=== PATIENT | male | born 1930 | race Caucasian/White ===

== ENCOUNTER 2018-03-28 11:40 | Day surgery (SDC) | payer OTHER ==
[2018-03-28] MEDS ORDERED: NS 0.9% VIAL 10 ML ONE (12:44)
[2018-03-28] MEDS ORDERED: NA CHLORIDE 0.9% 500 ML ONE (12:44)
[2018-03-28] MEDS ORDERED: MOXIFLOXACIN HCL 10 DROPS/ML **OR USE OPTH ONE (12:45)
[2018-03-28] MEDS ORDERED: EPINEPHRINE/PF 1 MG/ML AMP ONE (12:45)
[2018-03-28] MEDS ORDERED: BALANCED SALT IRRIG PLAIN 500 ML BTL IRR ONE (12:45)
[2018-03-28] MEDS ORDERED: LIDOCAINE 2% MPF 5 ML VIAL ONE (12:49)
[2018-03-28] MEDS ORDERED: BUPIVACAINE 0.5% PF 10 ML VIAL ONE (12:50)
[2018-03-28] MEDS: CYCLOPENTOLATE 1% OPTH 2 ML ONE ×3 (13:18→13:28)
[2018-03-28] MEDS: PHENYLEPHRINE 10% OPTH 5ML ONE ×3 (13:18→13:28)
[2018-03-28] MEDS ORDERED: BUPIVACAINE 0.25% PF 30 ML VIAL ONE (14:00)
[2018-03-28] MEDS ORDERED: PROPOFOL 200 MG/20 ML VIAL IV ONE (14:30)
[2018-03-28] MEDS ORDERED: LIDOCAINE 1% MPF 2 ML AMPULE ONE (14:30)
[2018-03-28] MEDS: TETRACAINE HCL 0.5% 2ML OPTH ONE ×2 (14:45→15:44)
[2018-03-28] MEDS ORDERED: DUOVISC 1 KIT OPTH ONE ×2 (15:14→15:30)
[2018-03-28] MEDS ORDERED: MIDAZOLAM HCL 2 MG/2 ML INJ ONE (15:45)
--- NOTE | 2018-03-28 16:07 | P.BOP ---
Preoperative diagnosis: Nuclear sclerotic cataract and miosis OS Postoperative diagnosis: Same Primary procedure: Phacoemulsification with IOL complex with the use of iris retractors OS Estimated blood loss: None Anesthesia: Local (Subtenon's infusion with anesthesia for cataract surgery) Complications: None Implants: SN60WF +20.0 Transferred to: Other (Day surgery) Condition: Good
[2018-03-28 16:19] VITALS: BP 141/54; TEMP 97.3; O2SAT 98
--- NOTE | 2018-03-29 01:40 | OP ---
Date of Procedure: 03/28/2018 Surgeon: Alia Norman MD Anesthesiologist: 1. Maryam Duran CRNA. 2. Zuhair Siu MD. Preoperative Diagnosis: Nuclear sclerotic cataract and miosis OD. Operation Performed: Phacoemulsification with intraocular lens implant right eye complex with the use of iris retractors. Anesthesia: Per cataract surgery. Complications: None. Description Of The Procedure: In day surgery, the patient was prepped with Betadine and draped. A lid speculum was placed in the OD. A conjunctival incision was made in the inferior nasal quadrant with Thierry scissors. A 1:1 mixture of 2% Xylocaine and 0.25% bupivacaine was placed around the globe. Approximately 5 mL were used. A Honan balloon was placed on the eye for approximately 5 minutes. The patient was brought into the operative room. The patient was prepped and draped in the usual sterile fashion for ophthalmic surgery. A lid speculum was placed in the eye. Paracentesis were made superiorly and inferiorly in the limbal cornea. Viscoat was placed in the anterior chamber. A crescent blade was used to create a tunnel incision in the temporal cornea and a keratome was used to enter the anterior chamber. The iris did not dilate adequately to create a 5 mm capsulotomy. Five additional paracentesis sites were created with one at the wound, one 180 degrees from the wound, and three in the superior and inferior quadrants; through these, 5 iris retractors were placed. Provisc was placed in the eye and 360 degree capsulotomy was performed. The lens was hydrodissected with balanced salt solution and moved freely. The lens was removed in a stop and chop fashion. A 40.91 CDE was required. Irrigation and aspiration was used to remove residual cortex. Provisc was placed in the eye. A SN60WF +20.0 diopter lens was placed in the capsular bag without complications. The iris retractors were removed. Irrigation and aspiration was used to remove residual viscoelastic. The paracentesis sites were hydrated with balanced salt solution and the wound and paracentesis sites were inspected and found to be watertight. Intracameral Vigamox 0.07 cc was injected at the end of the procedure. The eye was irrigated with balanced salt solution. The eye was patched with a soft cotton patch and Dumont metal shield. The patient was returned to day surgery in good condition. Comments: A scleral incision was created after making a conjunctival incision in the temporal conjunctiva. At the end of the procedure there was posterior pressure on the eye, and the iris incarceration in the inferior paracentesis. One 10-0 nylon suture was placed in the wound and one was placed in the inferior paracentesis. To relieve the pressure a 25-gauge needle was placed 3.5 mm posterior to the limbus and into the vitreous. Discharge Instructions: Mr. Sanchez is discharged to home in good condition. He is to follow up with Dr. Norman today and then in the morning. GABY/ANABELLA Voice ID: [id number] Report ID: [id number]
== END 2018-03-28 16:39 | disposition home or self-care (01) ==
LOC: OR 11:40
PROVIDERS: ATTEND Ophthalmology Retina Specialist
PROC: 08RJ3JZ Replacement of Right Lens with Synthetic Substitute, Percutaneous Approach (ICD-10-PCS; principal; 2018-03-28 12:15)
DX: H25.11 Age-related nuclear cataract, right eye (principal); H57.03 Miosis; H35.3130 Nonexudative age-related macular degeneration, bilateral, stage unspecified; H40.9 Unspecified glaucoma; H43.813 Vitreous degeneration, bilateral; E11.9 Type 2 diabetes mellitus without complications; I10 Essential (primary) hypertension; J44.9 Chronic obstructive pulmonary disease, unspecified; E78.00 Pure hypercholesterolemia, unspecified; F17.200 Nicotine dependence, unspecified, uncomplicated
CPT/HCPCS: 66982; 82962; J0171; J2001; J2250; V2630

== ENCOUNTER 2020-05-27 12:29 | Inpatient (IN) | payer OTHER ==
[2020-05-27 13:26] LABS: Absolute Lymphocytes (CBC) 0.8 K/uL (0.7-4.9); Basophils % 0.4 % (0-1.3); Hematocrit 32.2 % (39.6-49.0); MPV 9.8 fL (7.6-11.3); RBC Red Blood Cell Count 3.34 M/uL (4.33-5.43)
[2020-05-27] MEDS ORDERED: dexAMETHasone 4 MG/ML VIAL ONE (13:28)
[2020-05-27 13:43] LABS: Albumin 2.9 g/dL (3.4-5.0); Bilirubin Direct 0.1 mg/dL (0-0.2); Bilirubin Total 0.4 mg/dL (0.2-1.0); Potassium 5.3 mmol/L (3.5-5.1); Protein, Total 7.3 g/dL (6.4-8.2); Troponin (Emerg Dept Use Only) 0.17 ng/mL (0.0-0.045)
--- NOTE | 2020-05-27 13:45 | RAD REPORT ---
EXAM DESCRIPTION: Alistair Single View05/27/2020 1:27 pm CLINICAL HISTORY: Chest pain COMPARISON: May 2020 FINDINGS: Right basilar opacity. Small right pleural effusion. Left lung appears clear of acute infiltrate. Left basilar opacity could represents epicardial fat. The heart is borderline enlarged IMPRESSION: Small right pleural effusion with right basilar opacity likely pneumonia
--- NOTE | 2020-05-27 14:27 | ER ---
Nurse's Notes [facility] Name: Andrew Sanchez Age: 89 yrs Sex: Male : 1930 Arrival Date: 05/27/2020 Time: 12:33 Bed 2 Private MD: Diagnosis: Pneumonia, unspecified organism;Hypoxemia;Dyspnea, unspecified Presentation: 05/27 12:40 Onset of symptoms was April 2020. aa5 12:40 Coronavirus screen: chills, cough unrelated to allergies, fever, Client presents with aa5 at least one sign or symptom that may indicate coronavirus-19. Standard/surgical mask placed on the client. Provider contacted for isolation considerations. Ebola Screen: Patient negative for fever greater than or equal to 101.5 degrees Fahrenheit, and additional compatible Ebola Virus Disease symptoms. Initial Sepsis Screen: Does the patient meet any 2 criteria? RR > 20 per min. Temp <36.0*C (96.8*F)) or > 38.3*C (100.9*F). Yes Does the patient have a suspected source of infection? Yes: Productive cough/pneumonia. Risk Assessment: Do you want to hurt yourself or someone else? Patient reports no desire to harm self or others. 12:40 Acuity: JAMIE 2 aa5 12:40 Method Of Arrival: Wheelchair aa5 12:40 Chief complaint: Chief complaint: Pt's states "he's been having chills since this aa5 morning and he normally has a cough but over the last 2 days it's been getting worse". Pt is A\\T\\O x 3 in triage. Historical: - Allergies: 12:40 No Known Allergies; aa5 - PMHx: 12:40 Hypertension; Diabetes - IDDM; Emphysema; aa5 12:42 Arthritis; aa5 - Immunization history:: Adult Immunizations unknown. - Social history:: Smoking status: Patient reports the use of cigarette tobacco products, smokes one-half pack cigarettes per day. - Family history:: not pertinent. - Hospitalizations: : No recent hospitalization is reported. Screenin:06 Abuse screen: Denies threats or abuse. Denies injuries from another. Nutritional ca1 screening: No deficits noted. Tuberculosis screening: No symptoms or risk factors identified. Fall Risk IV access (20 points). Ambulatory Aid- Crutches/Cane/Walker (15 pts). Gait- Weak (10 pts.). Total Doss Fall Scale indicates High Risk Score (45 or more points). Fall prevention measures have been instituted. Side Rails Up X 2 Family Present and informed to notify staff if the need to leave the bedside As available patient and family educated on Fall Prevention Program and Strategies. Assessment: 13:06 General: Appears in no apparent distress. comfortable, Behavior is calm, cooperative, ca1 appropriate for age, drowsy, Reports fever for 0-12 hours. Pain: Denies pain. Neuro: Level of Consciousness is awake, obeys commands, Oriented to person, place, time, situation. Cardiovascular: Heart tones S1 S2 present Capillary refill < 3 seconds Patient's skin is warm and dry. Rhythm is sinus rhythm. Respiratory: Airway is patent Respiratory effort is even, unlabored, Respiratory pattern is regular, symmetrical, tachypnea Breath sounds are clear in right upper lobe, left upper lobe, right middle lobe, left posterior upper lobe, right posterior upper lobe, left posterior lower lobe and right posterior middle lobe Breath sounds are diminished in right posterior lower lobe Parent/caregiver reports the patient having cough that is more than usual. GI: Abdomen is round non-distended, Bowel sounds present X 4 quads. Abd is soft and non tender X 4 quads. : No signs and/or symptoms were reported regarding the genitourinary system. EENT: No signs and/or symptoms were reported regarding the EENT system. Derm: Skin is intact, is healthy with good turgor, Skin is normal. Musculoskeletal: Circulation, motion, and sensation intact. Capillary refill < 3 seconds. 14:00 Reassessment: Patient appears in no apparent distress at this time. Patient and/or ca1 family updated on plan of care and expected duration. Pain level reassessed. Patient is alert, oriented x 3, equal unlabored respirations, skin warm/dry/pink. 14:52 Reassessment: Patient appears in no apparent distress at this time. Patient and/or ca1 family updated on plan of care and expected duration. Pain level reassessed. Patient is alert, oriented x 3, equal unlabored respirations, skin warm/dry/pink. 15:42 Reassessment: Patient appears in no apparent distress at this time. Patient and/or ca1 family updated on plan of care and expected duration. Pain level reassessed. Patient is alert, oriented x 3, equal unlabored respirations, skin warm/dry/pink. 16:17 Reassessment: repeat lactate sent to lab, spoke with Denisa. em 16:40 Reassessment: Patient appears in no apparent distress at this time. Patient and/or ca1 family updated on plan of care and expected duration. Pain level reassessed. Patient is alert, oriented x 3, equal unlabored respirations, skin warm/dry/pink. 17:32 Reassessment: Patient appears in no apparent distress at this time. Patient and/or ca1 family updated on plan of care and expected duration. Pain level reassessed. Patient is alert, oriented x 3, equal unlabored respirations, skin warm/dry/pink. 18:08 Reassessment: Patient appears in no apparent distress at this time. Patient and/or ca1 family updated on plan of care and expected duration. Pain level reassessed. Patient is alert, oriented x 3, equal unlabored respirations, skin warm/dry/pink. 18:08 Reassessment: Called for report, nurse will call back. ca1 18:38 Reassessment: Patient appears in no apparent distress at this time. Patient and/or ca1 family updated on plan of care and expected duration. Pain level reassessed. Patient is alert, oriented x 3, equal unlabored respirations, skin warm/dry/pink. 19:11 Reassessment: Patient appears in no apparent distress at this time. Patient and/or ca1 family updated on plan of care and expected duration. Pain level reassessed. Patient is alert, oriented x 3, equal unlabored respirations, skin warm/dry/pink. 19:40 Reassessment: Patient appears in no apparent distress at this time. Patient and/or ca1 family updated on plan of care and expected duration. Pain level reassessed. Patient is alert, oriented x 3, equal unlabored respirations, skin warm/dry/pink. Vital Signs: 12:46 BP 109 / 42; Pulse 87; Resp 26 S; Temp 102.9(O); Pulse Ox 90% on R/A; aa5 14:00 BP 105 / 31; Pulse 75; Resp 26 S; Pulse Ox 90% on R/A; ca1 14:52 BP 107 / 47; Pulse 75; Resp 24 S; Temp 100.1(O); Pulse Ox 96% on R/A; ca1 15:42 BP 101 / 51; Pulse 72; Resp 23 S; Pulse Ox 99% on R/A; ca1 16:40 BP 90 / 60; Pulse 70; Resp 20 S; Temp 99.1(O); Pulse Ox 96% on R/A; ca1 17:32 BP 101 / 59; Pulse 69; Resp 24; Pulse Ox 96% on R/A; ca1 18:08 BP 106 / 62; Pulse 74; Resp 23 S; Pulse Ox 96% on R/A; ca1 19:00 BP 98 / 58; Pulse 74; Resp 24; Pulse Ox 94% on R/A; ca1 19:40 BP 95 / 59; Pulse 77; Resp 22; Temp 98.5; Pulse Ox 92% on R/A; ca1 19:42 Pulse Ox 99% ; ca1 19:42 hooked to oxygen at 2 liter via nasal cannula ca1 ED Course: 12:33 Patient arrived in ED. ag5 12:42 Arm band placed on. aa5 12:44 Triage completed. aa5 12:47 Kofi Cameron MD is Attending Physician. rn 13:00 No provider procedures requiring assistance completed. Inserted saline lock: 20 gauge ca1 in left forearm, using aseptic technique. Blood collected. 13:00 Initial lab(s) drawn, by me, sent to lab. First set of blood cultures drawn by me. ca1 13:04 Svetlana Edmondson, RN is Primary Nurse. ca1 13:05 Inserted saline lock: 20 gauge in right forearm, using aseptic technique. Blood ca1 collected. 13:05 Second set of blood cultures drawn. ca1 13:06 Patient has correct armband on for positive identification. Placed in gown. Bed in low ca1 position. Call light in reach. Side rails up X2. sanitation worker cleaning equipment on. Pulse ox on. NIBP on. 13:25 XRAY CXR (1 view) In Process Unspecified. EDMS 14:00 Flu and/or RSV swab sent to lab. COVID-19 swab sent to lab. jl7 14:25 Mainor Cameron MD is Hospitalizing Provider. rn 15:43 Patient admitted, IV remains in place. ca1 Administered Medications: 13:18 Drug: Decadron - Dexamethasone 10 mg Route: IVP; Site: left forearm; ll2 13:45 Follow up: Response: No adverse reaction jl7 14:30 Drug: Tylenol 1000 mg Route: PO; ca1 15:17 Follow up: Response: No adverse reaction; Temperature is decreased ca1 14:50 Drug: Rocephin 1 grams Route: IV; Rate: calculated rate; Site: right forearm; ca1 14:53 Follow up: Response: No adverse reaction; IV Status: Completed infusion jl7 15:17 Follow up: Response: No adverse reaction; IV Status: Completed infusion ca1 15:08 Drug: Zithromax 500 mg Route: IVPB; Infused Over: 1 hrs; Site: right forearm; jl7 16:22 Follow up: Response: No adverse reaction; IV Status: Completed infusion; IV Intake: em 250ml 16:54 Follow up: Response: No adverse reaction; IV Status: Completed infusion; IV Intake: ca1 250ml 15:17 Drug: NS 0.9% 500 ml Route: IV; Rate: bolus; Site: right wrist; ca1 16:22 Follow up: IV Status: Completed infusion; IV Intake: 500ml em 18:25 Drug: NS 0.9% 500 ml Route: IV; Rate: bolus; Site: right wrist; ca1 19:30 Follow up: Response: No adverse reaction; IV Status: Completed infusion; IV Intake: ca1 500ml Intake: 16:22 IV: 500ml; Total: 500ml. em 16:22 IV: 250ml; Total: 750ml. em 16:54 IV: 250ml; Total: 1000ml. ca1 19:30 IV: 500ml; Total: 1500ml. ca1 Outcome: 14:26 Decision to Hospitalize by Provider. rn 19:40 Admitted to Med/surg accompanied by nurse, via stretcher, room 207, with chart, Report ca1 called to STEPHY Garcia 19:40 Condition: stable ca1 19:40 Instructed on the need for admit. 19:49 Patient left the ED. mg2 Signatures: Dispatcher [employer] EDMS Neri Raphael RN RN em Kofi Cameron MD MD rn Calderon, Audri RN RN aa5 Grupo Coates RN RN jl7 Deven Montero RN RN mg2 Svetlana Edmondson RN RN ca1 Aurelio Arellano 5 Armida Singh RN RN ll2 Corrections: (The following items were deleted from the chart) 13:03 12:40 Chief complaint: aa5 aa5 13:05 12:40 Chief complaint: Pt's states "he's been having chills since this morning and aa5 he normally has a cough but over the last 2 days it's been getting worse". Chief complaint: Pt's states "he's been having chills since this morning and he normally has a cough but over the last 2 days it's been getting worse". aa5 14:52 13:06 Respiratory: Airway is patent Respiratory effort is even, unlabored, Respiratory ca1 pattern is regular, symmetrical, Parent/caregiver reports the patient having cough that is more than usual ca1
--- NOTE | 2020-05-27 14:27 | EDPHYS ---
Physician Documentation [facility] Name: Andrew Sanchez Age: 89 yrs Sex: Male : 1930 Arrival Date: 05/27/2020 Time: 12:33 Bed 2 Private MD: ED Physician Kofi Cameron HPI: 05/27 14:22 This 89 yrs old Male presents to ER via Wheelchair with complaints of Cough, rn Myrna. 14:22 The patient or guardian reports cough, difficulty breathing. Onset: The rn symptoms/episode began/occurred 2 day(s) ago. Severity of symptoms: At their worst the symptoms were moderate, in the emergency department the symptoms are unchanged. Modifying factors: The symptoms are alleviated by nothing, the symptoms are aggravated by nothing. It is unknown whether or not the patient has had similar symptoms in the past. states productive cough and dyspnea since yesterday, fever and chills today. + generalized weakness. . Historical: - Allergies: 12:40 No Known Allergies; aa5 - PMHx: 12:40 Hypertension; Diabetes - IDDM; Emphysema; aa5 12:42 Arthritis; aa5 - Immunization history:: Adult Immunizations unknown. - Social history:: Smoking status: Patient reports the use of cigarette tobacco products, smokes one-half pack cigarettes per day. - Family history:: not pertinent. - Hospitalizations: : No recent hospitalization is reported. ROS: 14:22 Constitutional: + fever and chills Eyes: Negative for injury, pain, redness, and rn hospice, Cardiovascular: Negative for chest pain, palpitations, and edema, Respiratory: + cough and sob Abdomen/GI: Negative for abdominal pain, nausea, vomiting, diarrhea, and constipation, MS/Extremity: Negative for injury and deformity, Skin: Negative for injury, rash, and discoloration, Neuro: Negative for headache, numbness, tingling, and seizure. Exam: 14:22 Constitutional: This is a well developed, well nourished patient who is awake, alert, rn + moderate tachypnea Head/Face: Normocephalic, atraumatic. ENT: dry MM, no stridor Cardiovascular: Regular rate and rhythm. No pulse deficits. Respiratory: + moderate tachypnea, diminished at bases, no retractions Abdomen/GI: soft, non-tender Skin: Warm, dry MS/ Extremity: Pulses equal, no cyanosis. Neuro: Awake and alert, GCS 15 Vital Signs: 12:46 BP 109 / 42; Pulse 87; Resp 26 S; Temp 102.9(O); Pulse Ox 90% on R/A; aa5 14:00 BP 105 / 31; Pulse 75; Resp 26 S; Pulse Ox 90% on R/A; ca1 14:52 BP 107 / 47; Pulse 75; Resp 24 S; Temp 100.1(O); Pulse Ox 96% on R/A; ca1 15:42 BP 101 / 51; Pulse 72; Resp 23 S; Pulse Ox 99% on R/A; ca1 16:40 BP 90 / 60; Pulse 70; Resp 20 S; Temp 99.1(O); Pulse Ox 96% on R/A; ca1 17:32 BP 101 / 59; Pulse 69; Resp 24; Pulse Ox 96% on R/A; ca1 18:08 BP 106 / 62; Pulse 74; Resp 23 S; Pulse Ox 96% on R/A; ca1 19:00 BP 98 / 58; Pulse 74; Resp 24; Pulse Ox 94% on R/A; ca1 19:40 BP 95 / 59; Pulse 77; Resp 22; Temp 98.5; Pulse Ox 92% on R/A; ca1 19:42 Pulse Ox 99% ; ca1 19:42 hooked to oxygen at 2 liter via nasal cannula ca1 MDM: 12:47 Patient medically screened. rn 14:24 Differential Diagnosis: Influenza Viral Syndrome Pneumonia Other COVID-19. Data rn reviewed: vital signs, nurses notes, lab test result(s), EKG, radiologic studies, plain films, and as a result, I will admit patient. Counseling: I had a detailed discussion with the patient and/or guardian regarding: the historical points, exam findings, and any diagnostic results supporting the discharge/admit diagnosis, lab results, radiology results, the need for further work-up and treatment in the hospital. Response to treatment: the patient's symptoms have mildly improved after treatment, and as a result, I will admit patient. Admission orders: after a detailed discussion of the patient's condition and case, the admit orders are written by me. 15:13 ED course: small fluid bolus 2/2 elevated BNP, and age, most likely some component of rn CHF.. 05/27 13:06 Order name: Blood Culture Adult (2) rn 05/27 13:06 Order name: BMP; Complete Time: 14:02 rn 05/27 13:06 Order name: CBC with Diff; Complete Time: 14:02 rn 05/27 13:06 Order name: Hepatic Function; Complete Time: 14:02 rn 05/27 13:06 Order name: Lipase; Complete Time: 14:02 rn 05/27 13:06 Order name: NT PRO-BNP; Complete Time: 14:02 rn 05/27 13:06 Order name: Troponin (emerg Dept Use Only); Complete Time: 14:02 rn 05/27 13:06 Order name: Flu; Complete Time: 18:18 rn 05/27 13:06 Order name: Procalcitonin; Complete Time: 14:02 rn 05/27 13:06 Order name: Lactate; Complete Time: 14:02 rn 05/27 13:06 Order name: Ferritin; Complete Time: 14:02 rn 05/27 13:06 Order name: CRP; Complete Time: 14:02 rn 05/27 13:06 Order name: Urine Culture rn 05/27 13:06 Order name: XRAY CXR (1 view); Complete Time: 14:02 05/27 13:06 Order name: EKG; Complete Time: 13:07 05/27 13:06 Order name: Cardiac monitoring; Complete Time: 13:09 05/27 13:06 Order name: EKG - Nurse/Tech; Complete Time: 13:09 05/27 13:06 Order name: IV Saline Lock; Complete Time: 13:09 rn 05/27 13:06 Order name: Urine Microscopic Only; Complete Time: 18:18 05/27 13:14 Order name: Glucose, Ancillary Testing; Complete Time: 14:02 EDLA 05/27 16:43 Order name: Lactate Sepsis 2 HR Follow-up; Complete Time: 18:18 [facility] 05/27 16:56 Order name: SARS-COV-2 RT PCR; Complete Time: 18:18 [facility] 05/27 17:21 Order name: Urine Dipstick--Ancillary (enter results); Complete Time: 18:18 05/27 13:06 Order name: Labs collected and sent; Complete Time: 13:09 rn 05/27 13:06 Order name: O2 Per Protocol; Complete Time: 13:09 rn 05/27 13:06 Order name: O2 Sat Monitoring; Complete Time: 13: rn 05/27 13:06 Order name: Droplet/Contact Precautions; Complete Time: 13:13 rn 05/27 13:06 Order name: Urine Dipstick-Ancillary (obtain specimen); Complete Time: 17:09 rn Administered Medications: 13:18 Drug: Decadron - Dexamethasone 10 mg Route: IVP; Site: left forearm; ll2 13:45 Follow up: Response: No adverse reaction jl7 14:30 Drug: Tylenol 1000 mg Route: PO; ca1 15:17 Follow up: Response: No adverse reaction; Temperature is decreased ca1 14:50 Drug: Rocephin 1 grams Route: IV; Rate: calculated rate; Site: right forearm; ca1 14:53 Follow up: Response: No adverse reaction; IV Status: Completed infusion jl7 15:17 Follow up: Response: No adverse reaction; IV Status: Completed infusion ca1 15:08 Drug: Zithromax 500 mg Route: IVPB; Infused Over: 1 hrs; Site: right forearm; jl7 16:22 Follow up: Response: No adverse reaction; IV Status: Completed infusion; IV Intake: em 250ml 16:54 Follow up: Response: No adverse reaction; IV Status: Completed infusion; IV Intake: ca1 250ml 15:17 Drug: NS 0.9% 500 ml Route: IV; Rate: bolus; Site: right wrist; ca1 16:22 Follow up: IV Status: Completed infusion; IV Intake: 500ml em 18:25 Drug: NS 0.9% 500 ml Route: IV; Rate: bolus; Site: right wrist; ca1 19:30 Follow up: Response: No adverse reaction; IV Status: Completed infusion; IV Intake: ca1 500ml Disposition: 05/27/20 14:26 Hospitalization ordered by Mainor Cameron for Inpatient Admission. Preliminary diagnosis are Pneumonia, unspecified organism, Hypoxemia, Dyspnea, unspecified. - Bed requested for Telemetry/MedSurg (Inpatient). - Status is Inpatient Admission. mg2 - Condition is Stable. - Problem is new. - Symptoms have improved. Signatures: Dispatcher [employer] EDMS Gracie Cloud Roman, MD MD rn Calderon, Audri, RN RN aa5 Grupo Coates RN RN jl7 Deven Montero, RN RN mg2 Acbettie, Svetlana, RN RN ca1 Armida Singh, RN RN ll2 Neri Raphael RN em Corrections: (The following items were deleted from the chart) 14:25 14:22 Constitutional: This is a well developed, well nourished patient who is awake, rn alert, + moderate tachypnea rn 15:57 13:07 CORONAVIRUS+MR.LAB.BRZ ordered. EDLA EDMS 17:45 14:26 Hospitalization Ordered by Mainor Cameron MD for Inpatient Admission. Preliminary bd diagnosis is Pneumonia, unspecified organism; Hypoxemia; Dyspnea, unspecified. Bed requested for Telemetry/MedSurg (Inpatient). Status is Inpatient Admission. Condition is Stable. Problem is new. Symptoms have improved. rn 19:49 17:45 05/27/2020 14:26 Hospitalization Ordered by Mainor Cameron MD for Inpatient mg2 Admission. Preliminary diagnosis is Pneumonia, unspecified organism; Hypoxemia; Dyspnea, unspecified. Bed requested for Telemetry/MedSurg (Inpatient). Status is Inpatient Admission. Condition is Stable. Problem is new. Symptoms have improved. bd
[2020-05-27] MEDS ORDERED: CEFTRIAXONE/SWI 1gm 1 GM/10 ML SYR ONE (14:53)
[2020-05-27] MEDS ORDERED: ACETAMINOPHEN 500 MG TAB ONE (14:53)
[2020-05-27] MEDS ORDERED: AZITHROMYCIN IV 500 MG in NA CHLORIDE 0.9% 250 ML IVPB ONE (15:00)
[2020-05-27] MEDS ORDERED: NA CHLORIDE 0.9% 500 ML ONE ×2 (15:25→18:34)
--- NOTE | 2020-05-27 16:23 | P.HP ---
Certification for Inpatient Patient admitted to: Observation Practitioner: I am a practitioner with admitting privileges, knowledge of patient current condition, hospital course, and medical plan of care. Services: Services provided to patient in accordance with Admission requirements found in Title 42 Section 412.3 of the Code of Federal Regulations Patient History Date of Service: 05/27/20 History of Present Illness: 89 yo, unable to provide HPI due to confusion. He reports he remembers being short of breath this morning and then waking up in ED. He is unable recall what he was doing yesterday as well. HPI obtained via EMR and ED physician. Pt reportedly SOB x 2 days, had moderate SOB. Alleviated by nothing, aggravated by nothing. reported productive cough and dyspnea since yesterday, fever and chills today with generalized weakness. In the ED, patient was noted to have RLL opacities with pleural effusion on CXR, leukocytosis, elevated procalcitonin, elevated lactate. Also with BNP >2000 Cr: 1.59 (unknown baseline), Lactate: 2.1, CRP: 154, BNP: 2244, Procal: 0.69. He received rocephin and azithro, and a small bolus in the ED. Allergies No Known Allergies Allergy (Verified 05/27/20 20:15) Home medications list reviewed: Yes Home Medications: Glimepiride [Amaryl*] 4 mg PO DAILY 10/18/14 Simvastatin [Zocor*] 40 mg PO BEDTIME 10/18/14 Ascorbic Acid [Vitamin C*] 1,000 mg PO DAILY 03/25/18 Latanoprost [Xalatan] 1 gtt EACH EYE DAILY 03/25/18 Areds 2 1 cap PO DAILY 05/27/20 Brimonidine [Alphagan P 0.15%*] 1 drop EACH EYE DAILY 05/27/20 Cranberry 400 mg PO DAILY 05/27/20 bisoproloL fumarate [Zebeta] 5 mg PO BEDTIME 05/27/20 - Past Medical/Surgical History Past Medical History: Unable to obtain Past Surgical History: Unable to obtain - Family History parents Notes: no medical hx per pt. unable to obtain - Social History Smoking Status: Current every day smoker Alcohol use: No CD- Drugs: No Review of Systems General: Weakness, As per HPI Eyes: Unremarkable ENT: Unremarkable Respiratory: Cough, Shortness of Breath, SOB with Excertion, As per HPI Cardiovascular: Unremarkable Gastrointestinal: Unremarkable Genitourinary: Unremarkable Musculoskeletal: Unremarkable Integumentary: Unremarkable Neurological: Confusion (unclear if baseline) Physical Examination - Physical Exam General: Alert, In no apparent distress, Oriented x1 (to self only) HEENT: Other (dry mucous membranes) Neck: No LAD Respiratory: Diminished, Other (mild tachypnea) Cardiovascular: Regular rate/rhythm, Normal S1 S2 Gastrointestinal: Normal bowel sounds, Soft and benign, Non-distended, No tenderness Musculoskeletal: No erythema, No tenderness Integumentary: No rashes, No breakdown Neurological: Normal speech, Other (appears confused) - Studies Laboratory Data (last 24 hrs) 05/27/20 13:00: WBC 13.4 H, Hgb 10.3 L, Hct 32.2 L, Plt Count 236 05/27/20 13:00: Sodium 137, Potassium 5.3 H, BUN 42 H, Creatinine 1.59 H, Glucose 228 H, Total Bilirubin 0.4, AST 19, ALT 19, Alkaline Phosphatase 62, Lipase 47 L Microbiology Data (last 24 hrs): 05/27/20 13:52 Nasopharnyx Influenza Type A Antigen Screen - Final 05/27/20 13:52 Nasopharnyx Influenza Type B Antigen Screen - Final Assessment and Plan - Plan Sepsis, Acute hypoxic respiratory failure in setting of community acquired pneumonia CHF HTN DM2 Sepsis, Acute hypoxic respiratory failure in setting of community acquired pneumonia -SIRS 12/29 (T: 102.9, RR: 26, WBC:13.4k, tachycardia). CURB-65: 3, qSOFA: 1, lactate >2 -received rocephin +azithro in ED, will continue with unasyn + azithro -received ~1L bolus in ED - small due to some component of CHF as well (pleural effusions, elevated BNP) -monitor closely, cultures drawn, trend lactate -O2 as needed acute on ?chronic CHF -given small boluses, not full sepsis due to component of acute CHF -on gentle mIVF as well, will need to monitor closely and discontinue as soon as possible -i do not see any h/o CHF, patient denies, and unable to get a hold of family at this time -may need diuresis once more stable HTN -per chart review, will need to confirm meds and restart if hypertensive DM2 -per chart review, unknown home meds at this time, will need to confirm -SSI and accucheks until then Dispo: anticipate DC in ~3 days - Advance Directives Does patient have a Living Will: No Does patient have a Durable POA for Healthcare: No - Code Status/Comfort Care Code Status: Full Code Time Spent Managing Pts Care (In Minutes): 55
[2020-05-27 17:41] LABS: Urine Bacteria 20-50 /HPF (NONE SEEN); Urine Culture Reflex Order NOT NEEDED; Urine Mucus 2+ /HPF (NONE SEEN)
[2020-05-27 17:41] LABS: Urine Blood 2+ (NEG); Urine Glucose NEGATIVE (NEG); Urine Protein 3+ (NEG)
[2020-05-27] MEDS: NA CHLORIDE 0.9% 1,000 ML IV SCH (20:09)
[2020-05-27] MEDS ORDERED: ACETAMINOPHEN 500 MG TAB PO PRN (20:09)
[2020-05-27] MEDS ORDERED: AMPICILLIN/SULBACTAM 3GM/VIAL ONE (20:41)
[2020-05-27] MEDS ORDERED: D50W 25 GM/50 ML SYRINGE/VIAL IV PRN (20:52)
[2020-05-27] MEDS ORDERED: GLUCAGON 1 MG/VIAL IM PRN (20:52)
[2020-05-27] MEDS: AMPICILLIN/SULBACT 3 GM in NA CHLORIDE 0.9% 100 ML IVPB SCH (21:30)
[2020-05-27] MEDS: INSULIN -REGULAR HUMAN 50 UNIT/0.5 ML ML SQ SCH (21:31)
[2020-05-27] MEDS ORDERED: NA CHLORIDE 0.9% 100 ML ONE (21:38)
[2020-05-27 23:31] VITALS: BMI 25.9
[2020-05-28] MEDS: AMPICILLIN/SULBACT 3 GM in NA CHLORIDE 0.9% 100 ML IVPB SCH ×3 (01:18→12:44)
[2020-05-28] MEDS ORDERED: NA CHLORIDE 0.9% 100 ML ONE (01:27)
[2020-05-28 04:46] LABS: Absolute Lymphocytes (CBC) 0.8 K/uL (0.7-4.9); Basophils % 0.1 % (0-1.3); Hematocrit 28.7 % (39.6-49.0); Lymphocytes % 6.2 % (15.3-44.8); MPV 9.7 fL (7.6-11.3); RBC Red Blood Cell Count 2.97 M/uL (4.33-5.43)
[2020-05-28 04:56] LABS: Magnesium 2.5 mg/dL (1.8-2.4); Phosphorus 3.6 mg/dL (2.5-4.9); Potassium 4.6 mmol/L (3.5-5.1)
[2020-05-28] MEDS: NA CHLORIDE 0.9% 1,000 ML IV SCH (06:09)
[2020-05-28 06:47] LABS: Blood Morphology Comment NOT SEEN (NOT SEEN); Platelet Estimate ADEQ
[2020-05-28] MEDS: INSULIN -REGULAR HUMAN 50 UNIT/0.5 ML ML SQ SCH ×4 (07:30→21:55)
[2020-05-28] MEDS ORDERED: PNEUMOCOCCAL VACCINE 0.5 ML IMVAC ONE (08:00)
[2020-05-28] MEDS: ENOXAPARIN 40 MG/0.4 ML SQ SCH (09:31)
[2020-05-28] MEDS: AZITHROMYCIN IV 500 MG in NA CHLORIDE 0.9% 250 ML IVPB SCH (09:31)
--- NOTE | 2020-05-28 13:23 | P.PN ---
Subjective Date of Service: 05/28/20 Chief Complaint: Shortness of breath, chills Subjective: Improving (More alert and oriented today, and breathing more comfortably) Review of Systems 10-point ROS is otherwise unremarkable Physical Examination - Vital Signs Temperature: 97.1 F Blood Pressure: 116/55 Pulse: 63 Respirations: 63 Pulse Ox (%): 96 - Physical Exam General: Alert, In no apparent distress, Oriented x3 HEENT: Mucous membr. moist/pink, Sclerae nonicteric Neck: Supple, JVD not distended Respiratory: Normal air movement, Diminished (Right lower lung base), Crackles/rales (right lower lung base) Cardiovascular: No edema, Regular rate/rhythm, Normal S1 S2 Gastrointestinal: Soft and benign, Non-distended, No tenderness Musculoskeletal: No erythema Integumentary: No rashes, No breakdown Neurological: Normal speech, Normal affect - Studies Laboratory Data (last 24 hrs) 05/28/20 04:00: Sodium 140, Potassium 4.6, BUN 44 H, Creatinine 1.38 H, Glucose 206 H, Phosphorus 3.6, Magnesium 2.5 H 05/28/20 04:00: WBC 12.6 H, Hgb 9.2 L, Hct 28.7 L, Plt Count 227 05/27/20 13:00: WBC 13.4 H, Hgb 10.3 L, Hct 32.2 L, Plt Count 236 05/27/20 13:00: Sodium 137, Potassium 5.3 H, BUN 42 H, Creatinine 1.59 H, Glucose 228 H, Total Bilirubin 0.4, AST 19, ALT 19, Alkaline Phosphatase 62, Lipase 47 L Microbiology Data (last 24 hrs): 05/27/20 13:52 Nasopharnyx Influenza Type A Antigen Screen - Final 05/27/20 13:52 Nasopharnyx Influenza Type B Antigen Screen - Final Assessment & Plan Physician Review Additional Text: Sepsis, Acute hypoxic respiratory failure in setting of community acquired pneumonia CHF HTN DM2 Sepsis, Acute hypoxic respiratory failure in setting of community acquired pneumonia -SIRS 4 (T: 102.9, RR: 26, WBC:13.4k, tachycardia). CURB-65: 3, qSOFA: 1, lactate >2 -received rocephin +azithro in ED, continue with unasyn + azithro -received ~1L bolus in ED - small due to some component of CHF as well (pleural effusions, elevated BNP) -overall seems to be improving, will Dc IV fluids -reports long smoking history, and mild expiratory wheeze heard on exam. Reports no diagnosis of COPD, will consider steroids if worsens -O2 as needed acute on ?chronic CHF -given small boluses, not full sepsis due to component of acute CHF -was on gentle mIVF, but discontinued today -i do not see any h/o CHF, patient denies as well -monitor fluid status closely HTN -per chart review, will need to confirm meds and restart if hypertensive DM2 -per chart review, unknown home meds at this time, will need to confirm -SSI and accucheks until then Dispo: anticipate DC in ~ 2 days Time Spent Managing Pts Care (In Minutes): 30
[2020-05-28] MEDS: PIPER/TAZO/NS 4.5gm 4.5 GM/100 ML BAG IVPB SCH (17:15)
[2020-05-29] MEDS: PIPER/TAZO/NS 4.5gm 4.5 GM/100 ML BAG IVPB SCH ×3 (00:52→16:52)
[2020-05-29 06:17] LABS: Hematocrit 27.6 % (39.6-49.0); MPV 9.4 fL (7.6-11.3); RBC Red Blood Cell Count 2.89 M/uL (4.33-5.43)
[2020-05-29 06:33] LABS: Magnesium 2.5 mg/dL (1.8-2.4); Potassium 4.3 mmol/L (3.5-5.1)
[2020-05-29] MEDS: INSULIN -REGULAR HUMAN 50 UNIT/0.5 ML ML SQ SCH ×4 (07:30→21:25)
[2020-05-29 08:26] LABS: Blood Morphology Comment NOT SEEN (NOT SEEN); Platelet Estimate ADEQ; White Blood Cell Scan OK
[2020-05-29] MEDS: ENOXAPARIN 40 MG/0.4 ML SQ SCH (09:17)
[2020-05-29] MEDS: AZITHROMYCIN IV 500 MG in NA CHLORIDE 0.9% 250 ML IVPB SCH (09:17)
[2020-05-29] MEDS: METHYLPREDNISOLONE 40 MG INJ IV SCH ×2 (09:19→16:52)
--- NOTE | 2020-05-29 10:02 | RAD REPORT ---
EXAM DESCRIPTION: RAD - Chest Single View - 05/29/2020 9:55 am CLINICAL HISTORY: SOB, effusion, pneumonia COMPARISON: Portable May 27 TECHNIQUE: AP portable chest image was obtained 05/29/2020 9:55 am . FINDINGS: Underlying interstitial fibrotic lung pattern again noted. Parenchymal stranding in the le ft lung field has not changed over the prior study. Right-sided pleural and parenchymal opacification at the base also unchanged. Heart and vasculature are normal. No pneumothorax. No acute bony abnorma lity seen. No acute aortic findings suspected. IMPRESSION: Pleural and parenchymal opacification at each base, greater on the right, unchanged from May 27 imaging.
[2020-05-29] MEDS: ALBUTEROL 2.5 MG/3 ML NEB SOL NEB SCH ×2 (14:00→20:20)
--- NOTE | 2020-05-29 16:49 | P.PN ---
Subjective Date of Service: 05/29/20 Chief Complaint: Shortness of breath, chills Subjective: Improving (Feeling like he can't breathe better, coughing more stuff up) Review of Systems 10-point ROS is otherwise unremarkable Physical Examination - Vital Signs Temperature: 97.8 F Blood Pressure: 134/59 Pulse: 81 Respirations: 25 Pulse Ox (%): 98 - Physical Exam General: Alert, In no apparent distress, Oriented x3 HEENT: Mucous membr. moist/pink Neck: Supple, JVD not distended Respiratory: Diminished, Crackles/rales, Expiratory wheezes (Mild) Cardiovascular: Regular rate/rhythm, Normal S1 S2 Gastrointestinal: Normal bowel sounds, Soft and benign, Non-distended, No tenderness Musculoskeletal: No erythema, No tenderness Integumentary: No rashes Neurological: Normal speech, Normal affect - Studies Microbiology Data (last 24 hrs): 05/27/20 17:08 Clean Catch Urine [place] Count - Final BETWEEN 10,000 & 100,000 CFU/ML 05/27/20 17:08 Clean Catch Urine - Final Escherichia Coli Assessment & Plan Physician Review Additional Text: Sepsis, Acute hypoxic respiratory failure in setting of community acquired pneumonia CHF HTN DM2 Sepsis, Acute hypoxic respiratory failure in setting of community acquired pneumonia Secondary to UTI as well -SIRS 4/4 (T: 102.9, RR: 26, WBC:13.4k, tachycardia). CURB-65: 3, qSOFA: 1, lactate >2 -received rocephin +azithro in ED, continued with unasyn + azithro, unasyn switched to Zosyn on 05/28 due to gram-negative leonardo bacteremia -reports long smoking history, and mild expiratory wheeze heard on exam. Reports no diagnosis of COPD, slightly louder wheeze today, will treat with steroids and nebs -urine culture growing pansensitive E. coli, awaiting the final blood cultures -O2 as needed acute on ?chronic CHF -given small boluses, not full sepsis due to component of acute CHF -was on gentle mIVF, but discontinued yesterday -i do not see any h/o CHF, patient denies as well -monitor fluid status closely HTN -restart home meds DM2 -per chart review -SSI and accucheks until then Dispo: anticipate DC in ~1-2 days Time Spent Managing Pts Care (In Minutes): 35
[2020-05-29] MEDS ORDERED: HOME MED 1 EA UNK (Simvastatin [Zocor*] 40 MG) PO SCH (21:00)
[2020-05-29] MEDS ORDERED: LATANOPROST 0.005% 2.5ML OPTH OPTH SCH (21:00)
[2020-05-29] MEDS: LATANOPROST 0.005% 2.5ML OPTH OPTH SCH (21:00)
[2020-05-29] MEDS: ATORVASTATIN 20 MG TAB PO SCH (21:25)
[2020-05-30] MEDS: PIPER/TAZO/NS 4.5gm 4.5 GM/100 ML BAG IVPB SCH ×3 (00:25→16:59)
[2020-05-30] MEDS: METHYLPREDNISOLONE 40 MG INJ IV SCH ×4 (00:25→22:21)
[2020-05-30] MEDS: ALBUTEROL 2.5 MG/3 ML NEB SOL NEB SCH ×4 (01:15→20:15)
[2020-05-30 05:58] LABS: Hematocrit 26.2 % (39.6-49.0); MPV 9.5 fL (7.6-11.3); RBC Red Blood Cell Count 2.74 M/uL (4.33-5.43)
[2020-05-30 06:17] LABS: Potassium 4.6 mmol/L (3.5-5.1)
[2020-05-30] MEDS: INSULIN -REGULAR HUMAN 50 UNIT/0.5 ML ML SQ SCH ×4 (08:17→22:20)
[2020-05-30] MEDS: ENOXAPARIN 40 MG/0.4 ML SQ SCH (08:18)
[2020-05-30] MEDS: AZITHROMYCIN IV 500 MG in NA CHLORIDE 0.9% 250 ML IVPB SCH (08:20)
[2020-05-30] MEDS: BISOPROLOL 5 MG TABLET PO SCH (09:03)
--- NOTE | 2020-05-30 17:26 | P.PN ---
Subjective Date of Service: 05/30/20 Chief Complaint: Shortness of breath, chills Subjective: Improving (still breathing heavy, on 3L NC) Review of Systems 10-point ROS is otherwise unremarkable Physical Examination - Vital Signs Temperature: 97.3 F Blood Pressure: 124/54 Pulse: 71 Respirations: 28 Pulse Ox (%): 97 - Physical Exam General: Alert, In no apparent distress, Oriented x3 HEENT: Mucous membr. moist/pink, Sclerae nonicteric Neck: Supple, No LAD Respiratory: Diminished, Crackles/rales (mild at R base), Expiratory wheezes (very mild) Cardiovascular: No edema, Regular rate/rhythm Gastrointestinal: Soft and benign, Non-distended, No tenderness Musculoskeletal: No erythema, No tenderness Integumentary: No rashes Neurological: Normal speech, Normal affect Assessment & Plan Physician Review Additional Text: Sepsis, Acute hypoxic respiratory failure in setting of community acquired pneumonia CHF HTN DM2 Sepsis, Acute hypoxic respiratory failure in setting of community acquired pneumonia Secondary to UTI as well -SIRS 4/4 (T: 102.9, RR: 26, WBC:13.4k, tachycardia). CURB-65: 3, qSOFA: 1, lactate >2 -received rocephin +azithro in ED, continued with unasyn + azithro, unasyn switched to Zosyn on 05/28 due to gram-negative leonardo bacteremia -reports long smoking history, and mild expiratory wheeze heard on exam. Reports no diagnosis of COPD, decrease steroids, continue nebs -urine culture growing pansensitive E. coli, preliminary blood cultures with Gram negative rods, awaiting final -wean the oxygen acute on ?chronic CHF -given small boluses, not full sepsis due to component of acute CHF -i do not see any h/o CHF, patient denies as well -monitor fluid status closely HTN -restarted home meds DM2 -per chart review -SSI and accucheks -restart home meds Dispo: anticipate DC tomorrow, wean O2, pending final cultures as well Time Spent Managing Pts Care (In Minutes): 35
[2020-05-30] MEDS: LATANOPROST 0.005% 2.5ML OPTH OPTH SCH (21:00)
[2020-05-30] MEDS: ATORVASTATIN 20 MG TAB PO SCH (22:21)
[2020-05-31] MEDS: PIPER/TAZO/NS 4.5gm 4.5 GM/100 ML BAG IVPB SCH ×3 (00:09→16:47)
[2020-05-31] MEDS ORDERED: NA CHLORIDE 0.9% 250 ML ONE (00:42)
[2020-05-31] MEDS: ALBUTEROL 2.5 MG/3 ML NEB SOL NEB SCH ×3 (02:15→12:45)
[2020-05-31 05:24] VITALS: O2SAT 95
[2020-05-31 06:04] LABS: Absolute Lymphocytes (CBC) 0.9 K/uL (0.7-4.9); Basophils % 0.1 % (0-1.3); Hematocrit 24.6 % (39.6-49.0); Lymphocytes % 5.7 % (15.3-44.8); MPV 9.3 fL (7.6-11.3); RBC Red Blood Cell Count 2.57 M/uL (4.33-5.43)
[2020-05-31 06:09] LABS: Potassium 4.6 mmol/L (3.5-5.1)
[2020-05-31 07:44] LABS: Blood Morphology Comment NOT SEEN (NOT SEEN); Platelet Estimate ADEQ
[2020-05-31] MEDS: INSULIN -REGULAR HUMAN 50 UNIT/0.5 ML ML SQ SCH ×3 (08:38→16:30)
[2020-05-31] MEDS: AZITHROMYCIN IV 500 MG in NA CHLORIDE 0.9% 250 ML IVPB SCH (08:38)
[2020-05-31] MEDS: ENOXAPARIN 40 MG/0.4 ML SQ SCH (08:39)
[2020-05-31] MEDS: METHYLPREDNISOLONE 40 MG INJ IV SCH (08:40)
[2020-05-31] MEDS: BISOPROLOL 5 MG TABLET PO SCH (08:40)
[2020-05-31] MEDS ORDERED: GLIMEPIRIDE 2 MG TABLET PO SCH (09:00)
--- NOTE | 2020-05-31 12:27 | P.CNS ---
Date of Consult: 05/31/20 Chief Complaint: Right-sided pneumonia and COPD History of Present Illness: Patient is 89 years of age admitted with acute on chronic dyspnea confusion worsening shortness of breath he is an active smoker half a pack a day and was admitted with a right lower lobe pneumonia he is feeling much better. He has had no prior lung issues Allergies No Known Allergies Allergy (Verified 05/27/20 20:15) Home Medications: Glimepiride [Amaryl*] 4 mg PO DAILY 10/18/14 Simvastatin [Zocor*] 40 mg PO BEDTIME 10/18/14 Latanoprost [Xalatan] 1 gtt EACH EYE BEDTIME 03/25/18 Areds 2 1 cap PO DAILY 05/27/20 Cranberry 400 mg PO DAILY 05/27/20 bisoproloL fumarate [Zebeta] 5 mg PO DAILY 05/27/20 - Past Medical/Surgical History Diabetic: Yes -: NIDDM-type 2 -: HTN -: HLD -: SEVERE ARTHRITIS -: PROSTATE CA-CANCER FREE -: EMPHYSEMA -: CATARACT SX BOTH EYES -: ABDOMINAL HERNIA REPAIR - Family History parents Notes: no medical hx per pt. unable to obtain - Social History Smoking Status: Current every day smoker Alcohol use: No CD- Drugs: No Caffeine use: Yes Place of Residence: Home Review of Systems 10-point ROS is otherwise unremarkable General: Weakness Respiratory: Shortness of Breath Physical Examination Temp Pulse Resp BP Pulse Ox 97.4 F 72 20 146/62 H 92 05/31/20 08:00 05/31/20 08:40 05/31/20 08:00 05/31/20 08:40 05/31/20 08:00 General: Alert, Oriented x3, Mild distress Respiratory: Crackles/rales (Crackles on the right day), Expiratory wheezes Cardiovascular: No edema, Normal S1 S2 Gastrointestinal: Normal bowel sounds, Soft and benign Musculoskeletal: No clubbing, No contractures - Problems (1) Pneumonia Current Visit: Yes Status: Acute Plan: Patient is 89 years of age admitted with right lower lobe pneumonia elevated white count is doing better vital signs are all stable is mildly hypoxic recommend change to p.o. levofloxacin for 10 days days patient id a fever on admission is now afebrile cultures show E coli in the urine and blood Qualifiers: Pneumonia type: due to unspecified organism (2) COPD (chronic obstructive pulmonary disease) Current Visit: Yes Status: Acute Plan: Most likely he has COPD is a very have a smoker recommend discharge on prednisone 10 b.i.d. for 10 days in addition to a bronchodilator example Advair 251 puff twice a day he may qualify for O2 patient has been console not to smoke he is a diabetic stable for discharge on p.o. antibiotics
--- NOTE | 2020-05-31 12:44 | P.DS ---
Admission Date: 05/28/20 Discharge Date: 05/31/20 Disposition: ROUTINE DISCHARGE Discharge Condition: GOOD Reason for Admission: Right-sided pneumonia and COPD Consultations: Pulmonology- Dr. Peters Procedures: Problem list Sepsis secondary to E. coli bacteremia, UTI (cystitis) acute hypoxic respiratory failure in the setting of community-acquired pneumonia CHF, unable to determine HTN DM2 Brief History of Present Illness: 89 yo, unable to provide HPI due to confusion. He reports he remembers being short of breath this morning and then waking up in ED. He is unable recall what he was doing yesterday as well. HPI obtained via EMR and ED physician. Pt reportedly SOB x 2 days, had moderate SOB. Alleviated by nothing, aggravated by nothing. reported productive cough and dyspnea since yesterday, fever and chills today with generalized weakness. In the ED, patient was noted to have RLL opacities with pleural effusion on CXR, leukocytosis, elevated procalcitonin, elevated lactate. Also with BNP >2000 Cr: 1.59 (unknown baseline), Lactate: 2.1, CRP: 154, BNP: 2244, Procal: 0.69. He received rocephin and azithro, and a small bolus in the ED. Hospital Course: Patient was admitted for the above, and was treated with antibiotics, steroids (for possible COPD exacerbation), and nebulizers. Over the course of this hospitalization, patient slowly improved. His urine and blood cultures resulted with pansensitive E. coli. Thus, he was transitioned to and discharged with 7 more days of Levaquin. On day of discharge patient was still requiring some oxygen, and this was set up for him to go home with. He was also discharged with prednisone if you still having wheezing on exam. Vital Signs/Physical Exam: Temp Pulse Resp BP Pulse Ox 97.4 F 72 20 146/62 H 92 05/31/20 08:00 05/31/20 08:40 05/31/20 08:00 05/31/20 08:40 05/31/20 08:00 General: Alert, In no apparent distress HEENT: PERRLA, Mucous membr. moist/pink Neck: Supple, JVD not distended Respiratory: Normal air movement, Diminished, Expiratory wheezes (Mild) Cardiovascular: Regular rate/rhythm, Normal S1 S2 Gastrointestinal: Normal bowel sounds, Soft and benign, Non-distended, No tenderness Musculoskeletal: No erythema, No tenderness Integumentary: No rashes Neurological: Normal speech, Normal tone, Normal affect Lymphatics: No axilla or inguinal lymphadenopathy Laboratory Data at Discharge: WBC 15.2 K/uL (4.3-10.9) H D 05/31/20 05:29 Hgb 8.1 g/dL (13.6-17.9) L 05/31/20 05:29 Hct 24.6 % (39.6-49.0) L 05/31/20 05:29 Plt Count 252 K/uL (152-406) 05/31/20 05:29 Sodium 139 mmol/L (136-145) 05/31/20 05:29 Potassium 4.6 mmol/L (3.5-5.1) 05/31/20 05:29 BUN 37 mg/dL (7-18) H 05/31/20 05:29 Creatinine 1.17 mg/dL (0.55-1.3) 05/31/20 05:29 Glucose 239 mg/dL (74-106) H 05/31/20 05:29 Phosphorus 3.6 mg/dL (2.5-4.9) 05/28/20 04:00 Magnesium 2.5 mg/dL (1.8-2.4) H 05/29/20 06:03 Total Bilirubin 0.4 mg/dL (0.2-1.0) 05/27/20 13:00 AST 19 U/L (15-37) 05/27/20 13:00 ALT 19 U/L (12-78) 05/27/20 13:00 Alkaline Phosphatase 62 U/L (45-117) 05/27/20 13:00 Lipase 47 U/L (73-393) L 05/27/20 13:00 Home Medications: Glimepiride [Amaryl*] 4 mg PO DAILY 10/18/14 Simvastatin [Zocor*] 40 mg PO BEDTIME 10/18/14 Latanoprost [Xalatan] 1 gtt EACH EYE BEDTIME 03/25/18 Areds 2 1 cap PO DAILY 05/27/20 Cranberry 400 mg PO DAILY 05/27/20 bisoproloL fumarate [Zebeta*] 5 mg PO DAILY 05/27/20 Albuterol Inhaler [Ventolin Inhaler*] 2 puff IH Q6H PRN 30 Days #1 inhaler 05/31/20 levoFLOXacin [Levaquin] 750 mg PO DAILY 7 Days #7 tab 05/31/20 predniSONE [Deltasone*] 10 mg PO BID 7 Days #14 tab 05/31/20 New Medications: predniSONE [Deltasone*] 10 mg PO BID 7 Days #14 tab levoFLOXacin [Levaquin] 750 mg PO DAILY 7 Days #7 tab Albuterol Inhaler [Ventolin Inhaler*] 2 puff IH Q6H PRN 30 Days #1 inhaler PRN Reason: Shortness Of Breath Patient Discharge Instructions: Follow up with PCP within 1 week. Follow up with Pulmonary, Dr. Peters. Diet: ADA Activity: Ad keven Time spent managing pt's care (in minutes): 35
[2020-05-31 18:26] VITALS: BP 123/59; TEMP 97.2
== END 2020-05-31 17:17 | disposition home or self-care (01) | DRG 871 ==
LOC: ER 12:29 → ERHOLD 16:09 → 2ND 19:43 → OBSVTOIN 05-28 08:10
PROVIDERS: ADMIT Hospitalist; ATTEND Hospitalist
DX: A41.9 Sepsis, unspecified organism (principal); J96.01 Acute respiratory failure with hypoxia; J18.9 Pneumonia, unspecified organism; J44.0 Chronic obstructive pulmonary disease with (acute) lower respiratory infection; N39.0 Urinary tract infection, site not specified; J44.1 Chronic obstructive pulmonary disease with (acute) exacerbation; F17.200 Nicotine dependence, unspecified, uncomplicated; I10 Essential (primary) hypertension; E78.5 Hyperlipidemia, unspecified; E11.9 Type 2 diabetes mellitus without complications; B96.20 Unspecified Escherichia coli [E. coli] as the cause of diseases classified elsewhere; Z79.899 Other long term (current) drug therapy; Z85.46 Personal history of malignant neoplasm of prostate; Z79.84 Long term (current) use of oral hypoglycemic drugs; Z20.828 Contact with and (suspected) exposure to other viral communicable diseases
CPT/HCPCS: 36415; 71045; 80048; 80076; 81003; 81015; 82728; 82947; 83605; 83690; 83735; 83880; 84100; 84145; 84484; 85025; 85027; 86140; 87040; 87077; 87086; 87088; 87186; 87205; 87804; 93005; 94760; 96361; 96365; 96375; 97110; 97161; 97530; 99285; G0378; J0295; J0456; J0696; J1650; J2920; J7030; J7040; J7050; U0003

== ENCOUNTER 2020-08-28 09:12 | Inpatient (IN) | payer OTHER ==
--- NOTE | 2020-08-28 10:21 | RAD REPORT ---
EXAM DESCRIPTION: RAD - Chest Single View - 08/28/2020 10:10 am CLINICAL HISTORY: sob, ams Chest pain. COMPARISON: Chest Single View dated 05/29/2020; Chest Single View dated 05/27/2020; CHEST SINGLE VIEW d ated 06/14/2009 FINDINGS: Portable technique limits examination quality. Mild interstitial pulmonary edema suspected. The heart is mildly enlarged in size. Trace pleural flui d bilaterally. IMPRESSION: Mild CHF.
--- NOTE | 2020-08-28 10:52 | RAD REPORT ---
EXAM DESCRIPTION: CT - Head Brain Wo Cont - 08/28/2020 10:14 am CLINICAL HISTORY: ams Headache, drowsiness COMPARISON: No comparisons TECHNIQUE: All CT scans are performed using dose optimization technique as appropriate and may inclu de automated exposure control or mA/KV adjustment according to patient size. FINDINGS: No intracranial hemorrhage, hydrocephalus or extra-axial fluid collection.Moderate general ized brain atrophy is present with moderate periventricular and deep white matter chronic microvascul ar ischemic changes.No areas of brain edema or evidence of midline shift. The paranasal sinuses and mastoids are clear. The calvarium is intact. IMPRESSION: No acute intracranial abnormality.
[2020-08-28 11:16] LABS: Absolute Lymphocytes (CBC) 1.3 K/uL (0.7-4.9); Basophils % 0.4 % (0-1.3); Lymphocytes % 9.7 % (15.3-44.8); MPV 9.1 fL (7.6-11.3); RBC Red Blood Cell Count 3.25 M/uL (4.33-5.43)
[2020-08-28 11:17] LABS: Protime INR 1.1
[2020-08-28 11:38] LABS: ALT/SGPT 15 U/L (12-78); AST/SGOT 14 U/L (15-37); Albumin 2.5 g/dL (3.4-5.0); Alkaline Phosphatase 61 U/L (45-117); BUN Blood Urea Nitrogen 27 mg/dL (7-18); Bicarbonate 31 mmol/L (21-32); Bilirubin Direct < 0.1 mg/dL (0-0.2); Bilirubin Total 0.4 mg/dL (0.2-1.0); Glucose Level 195 mg/dL (74-106); Magnesium 2.2 mg/dL (1.8-2.4); NT PRO-BNP 2130 pg/mL (<450); Potassium 5.2 mmol/L (3.5-5.1); Protein, Total 6.7 g/dL (6.4-8.2); Sodium Level 139 mmol/L (136-145); Troponin (Emerg Dept Use Only) < 0.02 ng/mL (0.0-0.045)
--- NOTE | 2020-08-28 12:18 | EDPHYS ---
Physician Documentation [facility] Name: Andrew Sanchez Age: 89 yrs Sex: Male : 1930 Arrival Date: 08/28/2020 Time: 09:22 Bed 16 Private MD: ED Physician Otf Salinas HPI: 08/28 09:49 This 89 yrs old Male presents to ER via EMS with complaints of Altered Mental jmm Status. 09:49 The patient presents with confusion. Onset: The symptoms/episode began/occurred today. jmm Possible causes: infection. Associated signs and symptoms: Pertinent negatives:. This is an 89 year old male with a history of dm, emphysema, htn that presents to the ED with shortness of breath which has been ongoing for the past 3 days. The daughter states the patient developed confusion today, asking her to go home when he was already home. Also states the patient has had a rash on his buttocks for the past 2 weeks. . Historical: - Allergies: 09:40 No Known Allergies; jl7 - Home Meds: 09:40 simvastatin 40 mg Oral tab once daily [Active]; metformin 1,000 mg Oral tr24 [Active]; jl7 carvedilol 25 mg oral tab 1 tab 2 times per day [Active]; clopidogrel 75 mg oral tab 1 tab once daily [Active]; Ecotrin 325 mg Oral TbEC [Active]; 09:58 glimepiride 4 mg Oral tab 1 tab [Active]; losartan 100 mg oral tab 1 tab once daily jl7 [Active]; metoprolol tartrate 50 mg Oral tab [Active]; propafenone 425 mg Oral cp12 1 cap 2 times per day [Active]; warfarin 5 mg Oral tab 1 tab once daily [Active]; triamterene oral oral [Active]; mirtazapine 30 mg Oral tab 1 tab once daily [Active]; - PMHx: 09:40 Arthritis; Diabetes - IDDM; Emphysema; Hypertension; jl7 - Immunization history:: Adult Immunizations unknown. - Social history:: Smoking status: Patient reports the use of cigarette tobacco products, smokes one-half pack cigarettes per day. ROS: 09:49 Constitutional: Negative for fever, chills, and weight loss, Cardiovascular: Negative jmm for chest pain, palpitations, and edema. 09:49 Constitutional: Positive for 09:49 Respiratory: Positive for shortness of breath. 09:49 Neuro: Positive for altered mental status. 09:49 All other systems are negative. Exam: 09:49 Head/Face: atraumatic. Eyes: EOMI, no conjunctival erythema appreciated ENT: Moist jmm Mucus Membranes Neck: Trachea midline, Supple Chest/axilla: Normal chest wall appearance and motion. 09:49 Abdomen/GI: Non distended, soft Back: Normal ROM MS/ Extremity: Moves all extremities, no obvious deformities appreciated, no edema noted to the lower extremities 09:49 Constitutional: The patient appears in no acute distress, alert, awake. 09:49 Cardiovascular: Rate: normal, Rhythm: regular. 09:49 Respiratory: the patient does not display signs of respiratory distress, Respirations: normal, Breath sounds: wheezing: that is mild, is scattered. 09:49 Neuro: Orientation: is normal, Mentation: is normal, Memory: is normal. 09:49 Psych: Behavior/mood is pleasant, cooperative. Vital Signs: 09:23 BP 142 / 61; Pulse 82; Resp 32; Temp 97.4; Pulse Ox 97% ; Pain 0/10; jl7 10:47 BP 123 / 58; Pulse 81; Resp 26 S; Pulse Ox 95% on R/A; ca1 11:30 BP 137 / 54; Pulse 82; Resp 26 S; Pulse Ox 95% on R/A; ca1 13:08 BP 137 / 66; Pulse 88; Resp 19 S; Pulse Ox 95% on R/A; jd3 14:00 Weight 104.33 kg (R); Height 6 ft. 3 in. (190.50 cm) (R); zb 14:07 BP 124 / 59; Pulse 85; Resp 22; Pulse Ox 96% on R/A; jd3 15:00 BP 141 / 55; Pulse 82; Resp 23; Pulse Ox 94% on R/A; zb 16:00 BP 123 / 67; Pulse 82; Resp 20; Pulse Ox 95% on R/A; zb 17:00 BP 137 / 60; Pulse 83; Resp 24; Pulse Ox 95% on R/A; zb 18:18 BP 148 / 99; Pulse 86; Resp 20; Pulse Ox 98% on R/A; zb 19:00 BP 132 / 55; Pulse 85; Resp 18; Pulse Ox 95% on R/A; zb 20:00 BP 134 / 60; Pulse 87; Resp 20; Pulse Ox 95% on R/A; zb 14:00 Body Mass Index 28.75 (104.33 kg, 190.50 cm) zb MDM: 09:44 Patient medically screened. [facility] 12:14 Data reviewed: vital signs, nurses notes. Counseling: I had a detailed discussion with [facility] the patient and/or guardian regarding: the historical points, exam findings, and any diagnostic results supporting the discharge/admit diagnosis, lab results, radiology results, the need for further work-up and treatment in the hospital. ED course: I discussed the patient with Dr. Lr whom accepted admission, but requested an update on ct pelvis. . 08/28 09:49 Order name: Basic Metabolic Panel; Complete Time: 11:55 [facility] 08/28 09:49 Order name: CBC with Diff; Complete Time: 11:19 [facility] 08/28 09:49 Order name: LFT's; Complete Time: 11:55 [facility] 08/28 09:49 Order name: Magnesium; Complete Time: 11:55 [facility] 08/28 09:49 Order name: NT PRO-BNP; Complete Time: 11:55 [facility] 08/28 09:49 Order name: PT-INR; Complete Time: 11:19 [facility] 08/28 09:49 Order name: Troponin (emerg Dept Use Only); Complete Time: 11:55 [facility] 08/28 09:49 Order name: Urine Culture [facility] 08/28 09:49 Order name: Procalcitonin; Complete Time: 12:04 [facility] 08/28 09:49 Order name: Lactate; Complete Time: 11:21 [facility] 08/28 09:49 Order name: Blood Culture Adult (2) [facility] 08/28 11:58 Order name: Urine Dipstick--Ancillary (enter results); Complete Time: 14:01 em1 08/28 12:57 Order name: Basic Metabolic Panel [facility] 08/28 12:57 Order name: Basic Metabolic Panel [facility] 08/28 09:49 Order name: XRAY Chest (1 view); Complete Time: 10:45 [facility] 08/28 09:49 Order name: EKG; Complete Time: 09:50 [facility] 08/28 09:49 Order name: Cardiac monitoring; Complete Time: 10:33 [facility] 08/28 09:49 Order name: EKG - Nurse/Tech; Complete Time: 10:33 [facility] 08/28 09:49 Order name: IV Saline Lock; Complete Time: 10:33 [facility] 08/28 09:49 Order name: CT Head Brain wo Cont; Complete Time: 10:58 [facility] 08/28 12:04 Order name: CT Pelvis w cont; Complete Time: 12:49 [facility] 08/28 12:56 Order name: CONS Pharmacy Consult [facility]LA 08/28 12:57 Order name: CONS Pharmacy Consult EDMS 08/28 12:57 Order name: Consistent Carb (ADA) 1800 Sj EDMS 08/28 12:57 Order name: CBC with Automated Diff [facility] 08/28 12:57 Order name: CBC with Automated Diff [facility] 08/28 12:57 Order name: Protime (+INR) [facility] 08/28 12:57 Order name: Protime (+INR) [facility] 08/28 12:57 Order name: PTT, Activated Partial Thromb [facility] 08/28 12:57 Order name: PTT, Activated Partial Thromb [facility]LA 08/28 09:49 Order name: Labs collected and sent; Complete Time: 10:48 [facility] 08/28 09:49 Order name: O2 Per Protocol; Complete Time: 10:33 [facility] 08/28 09:49 Order name: O2 Sat Monitoring; Complete Time: 10:33 [facility] 08/28 09:49 Order name: Urine Dipstick-Ancillary (obtain specimen); Complete Time: 11:55 jm Administered Medications: No medications were administered Disposition: 08/29 07:14 Co-signature as Attending Physician, Otf Salinas MD I agree with the assessment and kdr plan of care. Disposition: 08/28/20 12:17 Hospitalization ordered by Michael Lr for Observation. Preliminary diagnosis are Altered mental status, unspecified, Cellulitis of perineum, Dehydration, Acute on chronic combined systolic (congestive) and diastolic (congestive) heart failure. - Bed requested for Telemetry/MedSurg (observation). - Status is Observation. zb - Condition is Stable. - Problem is an acute exacerbation. - Symptoms are unchanged. Signatures: Dispatcher [employer] EDLA Nuvia Bocanegra RN RN mw Rittger, Kevin, MD MD kdr Mickail, Joel, PA PA jmGrupo Hernández RN RN jl7 Milagro Maxwell RN RN zb Corrections: (The following items were deleted from the chart) 08/28 19:22 12:17 Hospitalization Ordered by Michael Lr MD for Observation. Preliminary mw diagnosis is Altered mental status, unspecified; Cellulitis of perineum; Dehydration; Acute on chronic combined systolic (congestive) and diastolic (congestive) heart failure. Bed requested for Telemetry/MedSurg (observation). Status is Observation. Condition is Stable. Problem is an acute exacerbation. Symptoms are unchanged. [facility] 20:51 19:22 08/28/2020 12:17 Hospitalization Ordered by Michael Lr MD for Observation. zb Preliminary diagnosis is Altered mental status, unspecified; Cellulitis of perineum; Dehydration; Acute on chronic combined systolic (congestive) and diastolic (congestive) heart failure. Bed requested for Telemetry/MedSurg (observation). Status is Observation. Condition is Stable. Problem is an acute exacerbation. Symptoms are unchanged. mw
--- NOTE | 2020-08-28 12:18 | ER ---
Nurse's Notes [facility] Name: Andrew Sanchez Age: 89 yrs Sex: Male : 1930 Arrival Date: 08/28/2020 Time: 09:22 Bed 16 Private MD: Diagnosis: Altered mental status, unspecified;Cellulitis of perineum;Dehydration;Acute on chronic combined systolic (congestive) and diastolic (congestive) heart failure Presentation: 08/28 09:23 Chief complaint: EMS states: Toned out by family reporting AMS, pt is A\\T\\Ox4 with jl7 intermittent confusion, pt O2 on arrival was 91%, placed 3 lpm via NC and O2 was 98% in route, BGL 196, all other VSS. Coronavirus screen: Client denies travel out of the [place] in the last 14 days. At this time, the client does not indicate any symptoms associated with coronavirus-19. Ebola Screen: No symptoms or risks identified at this time. Initial Sepsis Screen: Does the patient meet any 2 criteria? No. Patient's initial sepsis screen is negative. Does the patient have a suspected source of infection? No. Patient's initial sepsis screen is negative. Risk Assessment: Do you want to hurt yourself or someone else? Patient reports no desire to harm self or others. Onset of symptoms was August 21, 2020. Care prior to arrival: IV initiated. 18 GA, in the right antecubital area, Glucose check: 196. Transition of care: patient was not received from another setting of care. 09:23 Method Of Arrival: EMS: [facility] jl7 09:23 Acuity: JAMIE 3 jl7 Triage Assessment: 09:58 General: Appears in no apparent distress. uncomfortable, Behavior is calm, cooperative, jl7 appropriate for age. Pain: Denies pain. Neuro: Level of Consciousness is awake, alert, obeys commands, Oriented to person, place, time, situation. Cardiovascular: Patient's skin is warm and dry. Respiratory: Airway is patent Respiratory effort is even, unlabored, Respiratory pattern is regular, symmetrical. GI: No signs and/or symptoms were reported involving the gastrointestinal system. : No signs and/or symptoms were reported regarding the genitourinary system. Derm: Skin is pink, warm \\T\\ dry. Rash noted that is red, on buttocks, medial aspect of right thigh and medial aspect of left thigh. Historical: - Allergies: 09:40 No Known Allergies; jl7 - Home Meds: 09:40 simvastatin 40 mg Oral tab once daily [Active]; metformin 1,000 mg Oral tr24 [Active]; jl7 carvedilol 25 mg oral tab 1 tab 2 times per day [Active]; clopidogrel 75 mg oral tab 1 tab once daily [Active]; Ecotrin 325 mg Oral TbEC [Active]; 09:58 glimepiride 4 mg Oral tab 1 tab [Active]; losartan 100 mg oral tab 1 tab once daily jl7 [Active]; metoprolol tartrate 50 mg Oral tab [Active]; propafenone 425 mg Oral cp12 1 cap 2 times per day [Active]; warfarin 5 mg Oral tab 1 tab once daily [Active]; triamterene oral oral [Active]; mirtazapine 30 mg Oral tab 1 tab once daily [Active]; - PMHx: 09:40 Arthritis; Diabetes - IDDM; Emphysema; Hypertension; jl7 - Immunization history:: Adult Immunizations unknown. - Social history:: Smoking status: Patient reports the use of cigarette tobacco products, smokes one-half pack cigarettes per day. Screenin:00 Abuse screen: Denies threats or abuse. Denies injuries from another. Nutritional ca1 screening: No deficits noted. Tuberculosis screening: No symptoms or risk factors identified. Fall Risk Secondary diagnosis (15 points) confusion. IV access (20 points). Ambulatory Aid- Crutches/Cane/Walker (15 pts). Gait- Weak (10 pts.). Total Doss Fall Scale indicates High Risk Score (45 or more points). Fall prevention measures have been instituted. Side Rails Up X 2 Frequent Obs/Assessments Occuring As available patient and family educated on Fall Prevention Program and Strategies. Assessment: 10:00 Reassessment: See triage notes. ca1 11:00 Reassessment: Patient appears in no apparent distress at this time. No changes from ca1 previously documented assessment. Patient is alert, oriented x 3, equal unlabored respirations, skin warm/dry/pink. 13:06 General: Appears uncomfortable, obese, Behavior is calm, cooperative. Pain: Denies zb pain. Neuro: Level of Consciousness is alert, obeys commands, confused, Oriented to person. Cardiovascular: Heart tones S1 S2 Capillary refill < 3 seconds in right in bilateral Patient's skin is warm and dry. Respiratory: Airway is patent Respiratory effort is even, unlabored. GI: Reports "my butthole gutierrez ". : Reports burning with urination, inability to void. EENT: No signs and/or symptoms were reported regarding the EENT system. Derm: redness located near groin area, and buttock area. Musculoskeletal: Range of motion: limited in bilateral legs. 14:14 Reassessment: Patient and/or family updated on plan of care and expected duration. Pain zb level reassessed. pt remain aox1 to person. lying in bed quietly. 15:15 Reassessment: Patient appears in no apparent distress at this time. Patient and/or zb family updated on plan of care and expected duration. Pain level reassessed. aox1. 16:00 Reassessment: Patient appears in no apparent distress at this time. Patient is alert, zb oriented x 3, equal unlabored respirations, skin warm/dry/pink. pt aox1 family at bedside, Hospitalist has spoken to patient and family. 17:00 Reassessment: Patient appears in no apparent distress at this time. Patient and/or zb family updated on plan of care and expected duration. Pain level reassessed. aox 1. pt calm, resting, watching TV. 18:00 Reassessment: Patient appears in no apparent distress at this time. Patient and/or zb family updated on plan of care and expected duration. Pain level reassessed. pt aox1. at bedside. repositioned. 19:00 Reassessment: Patient appears in no apparent distress at this time. Patient and/or zb family updated on plan of care and expected duration. Pain level reassessed. currently in bed calm, watching tv. 19:54 Reassessment: report given to 2nd floor nurse. awaiting room to be cleaned to take pt jd3 upstairs. 20:00 Reassessment: Patient appears in no apparent distress at this time. Patient and/or zb family updated on plan of care and expected duration. Pain level reassessed. pt awaiting transfer to upstairs. Vital Signs: 09:23 BP 142 / 61; Pulse 82; Resp 32; Temp 97.4; Pulse Ox 97% ; Pain 0/10; jl7 10:47 BP 123 / 58; Pulse 81; Resp 26 S; Pulse Ox 95% on R/A; ca1 11:30 BP 137 / 54; Pulse 82; Resp 26 S; Pulse Ox 95% on R/A; ca1 13:08 BP 137 / 66; Pulse 88; Resp 19 S; Pulse Ox 95% on R/A; jd3 14:00 Weight 104.33 kg (R); Height 6 ft. 3 in. (190.50 cm) (R); zb 14:07 BP 124 / 59; Pulse 85; Resp 22; Pulse Ox 96% on R/A; jd3 15:00 BP 141 / 55; Pulse 82; Resp 23; Pulse Ox 94% on R/A; zb 16:00 BP 123 / 67; Pulse 82; Resp 20; Pulse Ox 95% on R/A; zb 17:00 BP 137 / 60; Pulse 83; Resp 24; Pulse Ox 95% on R/A; zb 18:18 BP 148 / 99; Pulse 86; Resp 20; Pulse Ox 98% on R/A; zb 19:00 BP 132 / 55; Pulse 85; Resp 18; Pulse Ox 95% on R/A; zb 20:00 BP 134 / 60; Pulse 87; Resp 20; Pulse Ox 95% on R/A; zb 14:00 Body Mass Index 28.75 (104.33 kg, 190.50 cm) zb ED Course: 09:22 Patient arrived in ED. jl7 09:27 Triage completed. jl7 09:40 Arm band placed on right wrist. jl7 09:41 Nigel Donaldson PA is PHCP. [facility] 09:42 Otf Salinas MD is Attending Physician. jm 09:53 Grupo Coates RN is Primary Nurse. jl7 10:00 Patient has correct armband on for positive identification. Placed in gown. Bed in low ca1 position. Call light in reach. Side rails up X2. jerker on. Pulse ox on. NIBP on. Warm blanket given. 10:11 XRAY Chest (1 view) In Process Unspecified. EDMS 10:14 CT Head Brain wo Cont In Process Unspecified. EDMS 10:25 Maintain EMS IV. Dressing intact. Good blood return noted. Site clean \\T\\ dry. Gauge \\T\\ ca 1 site: g18 RAC. 10:49 No provider procedures requiring assistance completed. ca1 10:49 Initial lab(s) drawn, by cardiovascular lab director, sent to lab. First set of blood cultures drawn by [facility] lab staff. 11:05 Missed attempt(s): 22 gauge in left wrist. Bleeding controlled, band aid applied, ca1 catheter tip intact. 11:11 Second set of blood cultures drawn by me. ca1 11:11 Inserted saline lock: 22 gauge in left antecubital area, using aseptic technique. Blood ca1 collected. 11:55 Straight cath inserted, using sterile technique, 18 Fr. Specimen obtained. Returned ca1 clear yellow urine. Patient tolerated well. 12:15 Michael Lr MD is Hospitalizing Provider. jmm 12:19 CT Pelvis w cont In Process Unspecified. EDMS 18:03 Head of bed elevated. Cleaned of incontinence. Linen changed. jd3 18:07 Diet tray given. jd3 19:09 Primary Nurse role handed off by Grupo Coates RN jl7 19:29 Milagro Maxwell RN is Primary Nurse. zb 20:30 Patient admitted, IV remains in place. zb Administered Medications: No medications were administered Output: 11:56 Urine: 600ml (Straight Cath); Total: 600ml. ca1 Outcome: 12:17 Decision to Hospitalize by Provider. jmm 20:30 Admitted to Med/surg accompanied by nurse, via stretcher, room 209, with chart. zb 20:30 Condition: stable 20:30 Discharge instructions given to patient, family, Instructed on the need for admit. 20:51 Patient left the ED. zb Signatures: Dispatcher [employer] EDMS Nigel Donaldson PA PA jmm Leal, Jahala, RN RN jl7 Erasmo Daniels RN RN jd3 Acob, Cheryl, RN RN ca1 Brown, Zipporah, RN RN zb Corrections: (The following items were deleted from the chart) 10:50 10:20 Maintain EMS IV. Dressing intact. Good blood return noted. Site clean \\T\\ dry. ca1 Gauge \\T\\ site: g18 [facility]. ca1 11:12 11:00 Inserted saline lock: 22 gauge in left antecubital area, using aseptic technique. ca1 Blood collected. ca1 13:17 13:06 Derm: redness located near groin area zb zb 14:14 13:06 Neuro: Level of Consciousness is alert, obeys commands, confused, zb zb 14:46 14:07 BP 133 / 46; Pulse 85bpm; Resp 22bpm; Pulse Ox 96% RA; zb jd3 17:17 15:15 Reassessment: Patient appears in no apparent distress at this time. Patient zb and/or family updated on plan of care and expected duration. Pain level reassessed. Patient is alert, oriented x 3, equal unlabored respirations, skin warm/dry/pink. zb 17:17 16:00 Reassessment: Patient appears in no apparent distress at this time. Patient zb and/or family updated on plan of care and expected duration. Pain level reassessed. Patient is alert, oriented x 3, equal unlabored respirations, skin warm/dry/pink. family at bedside, Hospitalist has spoken to patient and family zb 17:17 17:00 Reassessment: Patient appears in no apparent distress at this time. Patient zb and/or family updated on plan of care and expected duration. Pain level reassessed. Patient is alert, oriented x 3, equal unlabored respirations, skin warm/dry/pink. zb
--- NOTE | 2020-08-28 12:33 | RAD REPORT ---
EXAM DESCRIPTION: CT - Pelvis W/Cont - 08/28/2020 12:19 pm CLINICAL HISTORY: perineal rash, induration Pain and swelling COMPARISON: No comparisons TECHNIQUE: All CT scans are performed using dose optimization technique as appropriate and may inclu de automated exposure control or mA/KV adjustment according to patient size. FINDINGS: Left kidney appears pelvic in location with small benign cysts noted. Appendix is normal. Evidence of previous bilateral inguinal hernia repair is evident. No pelvic mass, free fluid or adenopathy. Mild spondylosis is seen at L5-S1. Aortic and iliac atherosclerosis, mild. Subtle thickening of the anus region is seen. There is no evidence of a perirectal abscess is seen. P erirectal skin thickening and slight subcutaneous fat stranding is noted. IMPRESSION: Mild inflammatory changes in the perirectal region noted without evidence of perirectal abscess.
[2020-08-28] MEDS ORDERED: ACETAMINOPHEN 500 MG TAB PO PRN (12:52)
[2020-08-28] MEDS ORDERED: ONDANSETRON 4 MG/2 ML VIAL IV PRN (12:52)
[2020-08-28] MEDS ORDERED: MORPHINE 2 MG/ML SYR IV PRN (12:52)
[2020-08-28] MEDS: VANCOMYCIN/NS 1 gm 1 GM/250 ML BAG IVPB SCH (13:00)
[2020-08-28 13:54] LABS: Urine Blood NEGATIVE (NEG); Urine Glucose NEGATIVE (NEG); Urine Protein 2+ (NEG)
[2020-08-28] MEDS ORDERED: VANCOMYCIN/NS 1 gm 1 GM/250 ML BAG IV ONE (15:00)
[2020-08-28] MEDS ORDERED: dexAMETHasone 4 MG/ML VIAL IV ONE (17:00)
[2020-08-28] MEDS: NA CHLORIDE 0.9% 1,000 ML IV SCH (22:15)
[2020-08-28] MEDS: NYSTATIN PWDR 100000 UNIT/GM TOP SCH (22:16)
[2020-08-28] MEDS: FLUCONAZOLE 100mg IVPB 100 MG/50 ML BAG IV SCH (22:16)
[2020-08-28 22:23] VITALS: BMI 25.2
[2020-08-28] MEDS ORDERED: PIPER/TAZO/NS 3.375gm 3.375 GM/100 ML BAG ONE (22:28)
[2020-08-29] MEDS: PIPER/TAZO/NS 3.375gm 3.375 GM/100 ML BAG IVPB SCH ×4 (00:28→15:53)
[2020-08-29] MEDS: VANCOMYCIN/NS 1 gm 1 GM/250 ML BAG IVPB SCH (01:00)
[2020-08-29] MEDS: NA CHLORIDE 0.9% 1,000 ML IV SCH ×2 (02:20→15:40)
[2020-08-29] MEDS ORDERED: VANCOMYCIN 1.75 GM in NA CHLORIDE 0.9% 500 ML IVPB SCH (03:00)
[2020-08-29 04:18] LABS: Absolute Lymphocytes (CBC) 0.9 K/uL (0.7-4.9); Basophils % 0.2 % (0-1.3); Hematocrit 27.6 % (39.6-49.0); Lymphocytes % 5.5 % (15.3-44.8); MPV 9.1 fL (7.6-11.3); RBC Red Blood Cell Count 2.93 M/uL (4.33-5.43)
[2020-08-29 04:21] LABS: Protime INR 1.1
[2020-08-29 04:39] LABS: Potassium 4.8 mmol/L (3.5-5.1)
--- NOTE | 2020-08-29 06:09 | EKG ---
Test Date: 2020-08-28 Test Time: 10:29:47 Meter Reading Clerk: EMERY MEASUREMENT RESULTS: Intervals: Rate: 80 RI: 176 QRSD: 106 QT: 376 QTc: 433 [place]: P: 22 RI: 176 QRS: 86 T: -11 INTERPRETIVE STATEMENTS: Sinus rhythm with premature atrial complexes Abnormal QRS-T angle, consider primary T wave abnormality Abnormal ECG Compared to ECG 05/27/2020 13:08:01 Atrial premature complex(es) now present T-wave abnormality now present Left anterior fascicular block no longer present Electronically Signed On 08-29-20 06:07:25 UNIT SECY by Kevin Sneed
[2020-08-29 08:27] LABS: Blood Morphology Comment NOT SEEN (NOT SEEN); Platelet Estimate ADEQ; White Blood Cell Scan OK (OK)
[2020-08-29] MEDS ORDERED: INFLUENZA VACCINE (for 3y+) 0.5 ML DOSE IMVAC ONE ×2 (09:00→21:00)
[2020-08-29] MEDS ORDERED: PNEUMOCOCCAL VACCINE 0.5 ML IMVAC ONE ×2 (09:00→21:00)
--- NOTE | 2020-08-29 09:21 | P.HP ---
Certification for Inpatient Patient admitted to: Inpatient With expected LOS: >2 Midnights Patient will require the following post-hospital care: None Practitioner: I am a practitioner with admitting privileges, knowledge of patient current condition, hospital course, and medical plan of care. Services: Services provided to patient in accordance with Admission requirements found in Title 42 Section 412.3 of the Code of Federal Regulations Patient History Date of Service: 08/28/20 Reason for admission: Cellulitis of the perianal region History of Present Illness: Patient is an 89-year-old gentleman who presented to the hospital with generalized weakness and perianal cellulitis. Patient has been having pain and he states that in the anal region has been irritated. He was found have her rash in that region. He came into the hospital for evaluation. It appears that he had cutaneous candidiasis. And he has developed a secondary bacterial inf ection in that region. Patient also has been weekend been using a wheelchair for the last 8 months. He has not been moving around hardly at all. His is very concerned about him. At this time, he will be admitted to the hospital for further evaluation. Allergies No Known Allergies Allergy (Verified 05/27/20 20:15) Home Medications: Aspirin Enteric Coated [Ecotrin*] 1 tab PO DAILY 08/29/20 Carvedilol [Coreg] 1 tab PO BID 08/29/20 Clopidogrel Bisulfate [Plavix] 1 tab PO DAILY 08/29/20 Codeine 30/Acetaminophen 300 1 tab PO DAILY PRN 08/29/20 Glimepiride 1 tab PO DAILY 08/29/20 Losartan Potassium 1 tab PO DAILY 08/29/20 Metformin HCl 1 tab PO DAILY 08/29/20 Metoprolol Tartrate 1 tab PO DAILY 08/29/20 Mirtazapine 1 tab PO DAILY 08/29/20 Propafenone 425 1 cap PO BID 08/29/20 Simvastatin 1 tab PO DAILY 08/29/20 Warfarin Sodium 1 tab PO DAILY 08/29/20 - Past Medical/Surgical History Has patient received pneumonia vaccine in the past: No Diabetic: Yes -: NIDDM-type 2 -: HTN -: HLD -: SEVERE ARTHRITIS -: PROSTATE CA-CANCER FREE -: EMPHYSEMA -: CATARACT SX BOTH EYES -: ABDOMINAL HERNIA REPAIR - Family History parents Notes: no medical hx per pt. unable to obtain - Social History Smoking Status: Former smoker Alcohol use: No CD- Drugs: No Caffeine use: Yes Review of Systems 10-point ROS is otherwise unremarkable Physical Examination - Vital Signs Temperature: 97.4 F Blood Pressure: 131/63 Pulse: 84 Respirations: 20 Pulse Ox (%): 91 - Physical Exam General: Alert, In no apparent distress, Oriented x3 HEENT: Atraumatic, PERRLA, Mucous membr. moist/pink, EOMI, Sclerae nonicteric Neck: Supple, 2+ carotid pulse no bruit, No LAD, Without JVD or thyroid abnormality Respiratory: Clear to auscultation bilaterally, Normal air movement Cardiovascular: Regular rate/rhythm, Normal S1 S2, No murmurs Gastrointestinal: Normal bowel sounds, Soft and benign, Non-distended, No tenderness Musculoskeletal: No clubbing, No swelling, No tenderness Integumentary: Rash(es), Skin breakdown, Skin lesion, Tenderness/swelling, Erythema, Warmth Neurological: Normal speech, Normal tone, Sensation intact, Cranial nerves 3-12 intact, Abnormal gait, Abnormal strength Lymphatics: No axilla or inguinal lymphadenopathy - Studies Laboratory Data (last 24 hrs) 08/28/20 10:42: PT 13.0 H, INR 1.10 08/28/20 10:42: WBC 13.6 H, Hgb 10.1 L, Hct 31.0 L, Plt Count 325 08/28/20 10:42: Sodium 139, Potassium 5.2 H, BUN 27 H, Creatinine 1.40 H, Glucose 195 H, Magnesium 2.2, Total Bilirubin 0.4, AST 14 L, ALT 15, Alkaline Phosphatase 61 Assessment & Plan - Problems (Diagnosis) (1) Perianal cellulitis Current Visit: Yes Status: Acute (2) Cutaneous candidiasis Current Visit: Yes Status: Acute (3) General weakness Current Visit: Yes Status: Acute (4) COPD (chronic obstructive pulmonary disease) Current Visit: No Status: Acute (5) HTN (hypertension) Current Visit: Yes Status: Acute (6) DM2 (diabetes mellitus, type 2) Current Visit: Yes Status: Acute (7) H/O prostate cancer Current Visit: Yes Status: Acute - Plan 1. Continue with IV antibiotic 2. Continue with local wound care 3. Wound care consultation surgical consultation 4. Gentle IV hydration 5. Monitor CBC 6. Strict blood sugar and blood pressure control 7. Pain control 8. Physical therapy evaluation 9. GI and DVT prophylaxis Discharge Plan: Home Plan to discharge in: Greater than 2 days - Advance Directives Does patient have a Living Will: No Does patient have a Durable POA for Healthcare: No - Code Status/Comfort Care Code Status Assessed: Yes Code Status: Full Code Critical Care: No Time Spent Managing PTS Care (In Minutes): 45
[2020-08-29] MEDS: VANCOMYCIN 1.75 GM in NA CHLORIDE 0.9% 500 ML IVPB SCH (09:25)
[2020-08-29] MEDS: NYSTATIN PWDR 100000 UNIT/GM TOP SCH ×2 (09:27→20:10)
[2020-08-29] MEDS ORDERED: CODEINE PO PRN (14:57)
[2020-08-29] MEDS ORDERED: ACETAMINOPHEN PO PRN (14:57)
--- NOTE | 2020-08-29 15:02 | P.PN ---
Subjective Date of Service: 08/29/20 Subjective: No new changes, No C/O voiced, Improving Review of Systems 10-point ROS is otherwise unremarkable Physical Examination - Vital Signs Temperature: 97.4 F Blood Pressure: 131/63 Pulse: 84 Respirations: 20 Pulse Ox (%): 91 - Physical Exam General: Alert, In no apparent distress, Oriented x3 Respiratory: Clear to auscultation bilaterally, Normal air movement Cardiovascular: Regular rate/rhythm, Normal S1 S2, No murmurs Gastrointestinal: Normal bowel sounds, Soft and benign, Non-distended, No tenderness Musculoskeletal: No clubbing, No swelling, No tenderness Neurological: Sensation intact, Cranial nerves 3-12 intact - Studies Medications List Reviewed: Yes Assessment & Plan - Problems (Diagnosis) (1) Perianal cellulitis Current Visit: Yes Status: Acute (2) Cutaneous candidiasis Current Visit: Yes Status: Acute (3) General weakness Current Visit: Yes Status: Acute (4) COPD (chronic obstructive pulmonary disease) Current Visit: No Status: Acute (5) HTN (hypertension) Current Visit: Yes Status: Acute (6) DM2 (diabetes mellitus, type 2) Current Visit: Yes Status: Acute (7) H/O prostate cancer Current Visit: Yes Status: Acute - Plan 1. Continue with IV antibiotic 2. Continue with local wound care 3. Wound care consultation surgical consultation 4. Gentle IV hydration 5. Monitor CBC 6. Strict blood sugar and blood pressure control 7. Pain control 8. Physical therapy evaluation 9. GI and DVT prophylaxis - Advance Directives Does patient have a Living Will: No Does patient have a Durable POA for Healthcare: No - Code Status/Comfort Care Code Status: Full Code
[2020-08-29] MEDS: FLUCONAZOLE 100mg IVPB 100 MG/50 ML BAG IV SCH (17:00)
[2020-08-29] MEDS ORDERED: WATER FOR INJ,STERILE 10 ML IV SCH (17:00)
[2020-08-29] MEDS ORDERED: CODEINE 30MG/APAP 300MG TAB PO PRN (17:05)
[2020-08-29] MEDS: CEFEPIME/SWI 2gm 2 GM/20 ML SYR IV SCH (20:01)
[2020-08-29] MEDS: HYDROCORTISONE SUC 100 MG INJ IV SCH (20:01)
[2020-08-29] MEDS: carvediloL 25 MG TAB PO SCH (20:11)
[2020-08-29] MEDS ORDERED: PROPAFENONE 425 MG PO SCH (21:00)
[2020-08-29] MEDS ORDERED: ATORVASTATIN 20 MG TAB PO SCH (21:00)
[2020-08-30 01:04] VITALS: O2SAT 92
[2020-08-30] MEDS: NA CHLORIDE 0.9% 1,000 ML IV SCH (05:41)
[2020-08-30] MEDS ORDERED: GLIMEPIRIDE 2 MG TABLET PO SCH (08:00)
[2020-08-30] MEDS ORDERED: METFORMIN HCL 500 MG TAB PO SCH (08:00)
[2020-08-30] MEDS ORDERED: WARFARIN SODIUM 5 MG TAB PO SCH (09:00)
[2020-08-30] MEDS ORDERED: HOME MED 1 EA UNK (Glimepiride [Glimepiride] 1 TAB) PO SCH (09:00)
[2020-08-30] MEDS ORDERED: HOME MED 1 EA UNK (Simvastatin [Simvastatin] 1 TAB) PO SCH (09:00)
[2020-08-30] MEDS ORDERED: METOPROLOL TAR 50 MG TAB PO SCH (09:00)
[2020-08-30] MEDS ORDERED: LOSARTAN POTASSIUM 50 MG TABLET PO SCH (09:00)
[2020-08-30] MEDS ORDERED: HOME MED 1 EA UNK (Mirtazapine [Mirtazapine] 1 TAB) PO SCH (09:00)
[2020-08-30] MEDS ORDERED: HOME MED 1 EA UNK (Metformin Hcl [Metformin Hcl] 1 TAB) PO SCH (09:00)
[2020-08-30] MEDS ORDERED: MIRTAZAPINE 15 MG TAB PO SCH (09:00)
[2020-08-30] MEDS ORDERED: ASPIRIN EC 325 MG TABLET PO SCH (09:00)
[2020-08-30] MEDS ORDERED: CLOPIDOGREL 75 MG TABLET PO SCH (09:00)
[2020-08-30] MEDS ORDERED: HOME MED 1 EA UNK (Losartan Potassium [Losartan Potassium] 1 TAB) PO SCH ×2 (09:00)
[2020-08-30] MEDS ORDERED: ASPIRIN ENTERIC COATED PO SCH (09:00)
[2020-08-30] MEDS: HYDROCORTISONE SUC 100 MG INJ IV SCH (09:12)
[2020-08-30] MEDS: carvediloL 25 MG TAB PO SCH (09:23)
[2020-08-30] MEDS: CEFEPIME/SWI 2gm 2 GM/20 ML SYR IV SCH (09:24)
[2020-08-30] MEDS: NYSTATIN PWDR 100000 UNIT/GM TOP SCH (10:03)
[2020-08-30] MEDS: VANCOMYCIN 1.75 GM in NA CHLORIDE 0.9% 500 ML IVPB SCH (11:24)
--- NOTE | 2020-08-30 13:44 | P.DS ---
Discharge Date: 08/30/20 Disposition: ROUTINE DISCHARGE Discharge Condition: GOOD Reason for Admission: Cellulitis of the perianal region - Problems (1) Perianal cellulitis Status: Acute (2) Cutaneous candidiasis Status: Acute (3) General weakness Status: Acute (4) COPD (chronic obstructive pulmonary disease) Status: Acute (5) HTN (hypertension) Status: Acute (6) DM2 (diabetes mellitus, type 2) Status: Acute (7) H/O prostate cancer Status: Acute Brief History of Present Illness: Patient is an 89-year-old gentleman who presented to the hospital with generalized weakness and perianal cellulitis. Patient has been having pain and he states that in the anal region has been irritated. He was found have her rash in that region. He came into the hospital for evaluation. It appears that he had cutaneous candidiasis. And he has developed a secondary bacterial infection in that region. Patient also has been weekend been using a wheelchair for the last 8 months. He has not been moving around hardly at all. His is very concerned about him. At this time, he will be admitted to the hospital for further evaluation. Hospital Course: She did well during hospital stay. Patient was treated with antibiotics and antifungal. Erythema is much better. At this time, patient is stable for discharge with outpatient followup. Patient lives with his who will continue to take care of him. She is his main plant facilities technician and patient states he will do better at home as he is not really able to do anything at the hospital. At this time we will discharge him home. Continue outpatient follow with PCP in 1-2 weeks. Vital Signs/Physical Exam: Temp Pulse Resp BP Pulse Ox 97.6 F 78 24 H 118/56 L 91 08/30/20 08:00 08/30/20 09:29 08/30/20 08:00 08/30/20 09:29 08/30/20 08:00 General: Alert, In no apparent distress, Oriented x3 Laboratory Data at Discharge: WBC 15.9 K/uL (4.3-10.9) H D 08/29/20 03:40 Hgb 9.2 g/dL (13.6-17.9) L 08/29/20 03:40 Hct 27.6 % (39.6-49.0) L 08/29/20 03:40 Plt Count 304 K/uL (152-406) 08/29/20 03:40 PT 13.0 SECONDS (9.5-12.5) H 08/29/20 03:40 INR 1.10 08/29/20 03:40 APTT 24.7 SECONDS (24.3-36.9) 08/29/20 03:40 Sodium 138 mmol/L (136-145) 08/29/20 03:40 Potassium 4.8 mmol/L (3.5-5.1) 08/29/20 03:40 BUN 27 mg/dL (7-18) H 08/29/20 03:40 Creatinine 1.27 mg/dL (0.55-1.3) 08/29/20 03:40 Glucose 232 mg/dL (74-106) H 08/29/20 03:40 Magnesium 2.2 mg/dL (1.8-2.4) 08/28/20 10:42 Total Bilirubin 0.4 mg/dL (0.2-1.0) 08/28/20 10:42 AST 14 U/L (15-37) L 08/28/20 10:42 ALT 15 U/L (12-78) 08/28/20 10:42 Alkaline Phosphatase 61 U/L (45-117) 08/28/20 10:42 Home Medications: Aspirin Enteric Coated [Ecotrin*] 1 tab PO DAILY 08/29/20 Carvedilol [Coreg] 1 tab PO BID 08/29/20 Clopidogrel Bisulfate [Plavix] 1 tab PO DAILY 08/29/20 Codeine 30/Acetaminophen 300 1 tab PO DAILY PRN 08/29/20 Glimepiride 1 tab PO DAILY 08/29/20 Losartan Potassium 1 tab PO DAILY 08/29/20 Metformin HCl 1 tab PO DAILY 08/29/20 Metoprolol Tartrate 1 tab PO DAILY 08/29/20 Mirtazapine 1 tab PO DAILY 08/29/20 Propafenone 425 1 cap PO BID 08/29/20 Simvastatin 1 tab PO DAILY 08/29/20 Warfarin Sodium 1 tab PO DAILY 08/29/20 Fluconazole [Diflucan] 100 mg PO DAILY #7 tablet 08/30/20 Losartan Potassium [Cozaar*] 100 mg PO DAILY #30 tablet 08/30/20 Minocycline HCl 100 mg PO DAILY #7 capsule 08/30/20 Smz./Tmp. [Bactrim Ds 800 MG/160 MG] 1 each PO DAILY #7 tab 08/30/20 Nystatin 60 gm TP BID #1 powder 09/02/20 New Medications: Smz./Tmp. [Bactrim Ds 800 MG/160 MG] 1 each PO DAILY #7 tab Losartan Potassium [Cozaar*] 100 mg PO DAILY #30 tablet Fluconazole [Diflucan] 100 mg PO DAILY #7 tablet Minocycline HCl 100 mg PO DAILY #7 capsule Nystatin 60 gm TP BID #1 powder Patient Discharge Instructions: OK TO DC IV AND DC HOME WITH HOME HEALTH. FOLLOW-UP WITH PRIMARY CARE PROVIDER IN 1-2 WEEKS. FOLLOW WITH A AUTOMOTIVE CENTER MANAGER IN 2-4 WEEKS. RETURN TO THE ER IF SYMPTOMS WORSEN. CALL or TEXT DR. RODRIGUEZ AT [phone] IF ANY QUESTIONS REGARDING HOSPITAL STAY. PLEASE CALL THE FLOOR AT [phone] IF ANY MEDICATION OR NURSING QUESTIONS. Diet: ADA Activity: Fall precautions Followup: Unknown,U [Primary Care Provider] - Time spent managing pt's care (in minutes): 35
[2020-08-30] MEDS ORDERED: NA CHLORIDE 0.9% 250 ML IV PRN (15:49)
[2020-09-05 17:06] VITALS: BP 131/63; TEMP 97.4
== END 2020-08-30 15:44 | disposition home or self-care (01) | DRG 393 ==
LOC: ER 09:12 → ERHOLD 12:52 → 2ND 19:51
PROVIDERS: ADMIT Hospitalist; ATTEND Hospitalist
DX: K61.0 Anal abscess (principal); I50.33 Acute on chronic diastolic (congestive) heart failure; I11.0 Hypertensive heart disease with heart failure; E11.9 Type 2 diabetes mellitus without complications; E78.5 Hyperlipidemia, unspecified; J44.9 Chronic obstructive pulmonary disease, unspecified; F17.210 Nicotine dependence, cigarettes, uncomplicated; B37.2 Candidiasis of skin and nail; Z79.84 Long term (current) use of oral hypoglycemic drugs; Z79.02 Long term (current) use of antithrombotics/antiplatelets; Z79.01 Long term (current) use of anticoagulants; Z85.46 Personal history of malignant neoplasm of prostate; Z79.899 Other long term (current) drug therapy; Z79.82 Long term (current) use of aspirin; Z20.828 Contact with and (suspected) exposure to other viral communicable diseases
CPT/HCPCS: 36415; 51702; 70450; 71045; 72193; 80048; 80076; 80202; 81003; 82947; 83605; 83735; 83880; 84145; 84484; 85025; 85610; 85730; 87040; 87077; 87086; 87088; 87186; 87205; 93005; 97161; 97530; 99285; J0692; J1100; J1450; J1720; J2543; J3370; J7030; J7040; Q9967; U0002

== ENCOUNTER 2020-09-09 17:32 | Inpatient (IN) | payer OTHER ==
--- NOTE | 2020-09-09 18:29 | RAD REPORT ---
EXAM DESCRIPTION: RAD - Chest Single View - 09/09/2020 6:17 pm CLINICAL HISTORY: hypoxia, ams Chest pain. COMPARISON: Chest Single View dated 08/28/2020; Chest Single View dated 05/29/2020; Chest Single View d ated 05/27/2020; CHEST SINGLE VIEW dated 06/14/2009 FINDINGS: Portable technique limits examination quality. Mild interstitial pulmonary edema seen. Linear opacities in the right lung base appear unchanged and likely chronic. The heart is moderately enlarged in size. No displaced fractures. IMPRESSION: Mild CHF.
[2020-09-09 18:50] LABS: Protime INR 1.11
[2020-09-09 18:51] LABS: Absolute Lymphocytes (CBC) 1.9 K/uL (0.7-4.9); Basophils % 0.4 % (0-1.3); Hematocrit 33.6 % (39.6-49.0); Lymphocytes % 11.1 % (15.3-44.8); MPV 9.1 fL (7.6-11.3); RBC Red Blood Cell Count 3.51 M/uL (4.33-5.43)
[2020-09-09 19:50] LABS: ALT/SGPT 15 U/L (12-78); AST/SGOT 16 U/L (15-37); Albumin 2.7 g/dL (3.4-5.0); Alkaline Phosphatase 72 U/L (45-117); BUN Blood Urea Nitrogen 26 mg/dL (7-18); Bicarbonate 33 mmol/L (21-32); Bilirubin Direct < 0.1 mg/dL (0-0.2); Bilirubin Total 0.4 mg/dL (0.2-1.0); Glucose Level 160 mg/dL (74-106); NT PRO-BNP 7652 pg/mL (<450); Protein, Total 7.1 g/dL (6.4-8.2); Sodium Level 137 mmol/L (136-145); Troponin (Emerg Dept Use Only) < 0.02 ng/mL (0.0-0.045)
[2020-09-09] MEDS ORDERED: ALBUTEROL 2.5 MG/3 ML NEB SOL ONE (20:22)
[2020-09-09] MEDS ORDERED: INSULIN -REGULAR HUMAN 50 UNIT/0.5 ML ML ONE (20:22)
[2020-09-09] MEDS ORDERED: SOD POLYSTYREN SUL 15 GM/60 ML UCUP ONE (20:23)
[2020-09-09] MEDS ORDERED: D50W 50 ML IV ONE (20:23)
--- NOTE | 2020-09-09 20:34 | EDPHYS ---
Physician Documentation [facility] Name: Andrew Sanchez Age: 89 yrs Sex: Male : 1930 Arrival Date: 09/09/2020 Time: 17:34 Bed 8 Private MD: ED Physician Lio Lira HPI: 09/09 17:45 This 89 yrs old Male presents to ER via EMS with complaints of Altered Mental jmm Status. 17:45 The patient has shortness of breath at rest. Onset: The symptoms/episode began/occurred jmm gradually, 3 day(s) ago. The patient's shortness of breath has no apparent modifying factors. Associated signs and symptoms: Pertinent negatives: fever. This is an 89 year old male with a history of emphysema, DM, HTN that presents to the ED with SOB beginning approx 3 days ago. Recently hospitalized for cellulitis. . 21:08 Home Medications: Metformin, simvistatin, calcium/vit D, Glucosamine, Aspirin 325 mg, jmm glimepiride 2 mg, Mirtazapine 30 mg daily. Historical: - Allergies: 17:38 No Known Allergies; sv - PMHx: 17:38 Arthritis; Emphysema; Diabetes - IDDM; Hypertension; sv - Immunization history:: Adult Immunizations up to date. - Social history:: Smoking status: Patient denies any tobacco usage or history of. ROS: 17:45 Constitutional: Negative for fever, chills, and weight loss, Cardiovascular: Negative jmm for chest pain, palpitations, and edema. 17:45 Respiratory: Positive for shortness of breath. 17:45 Neuro: Positive for altered mental status. 17:45 All other systems are negative. Exam: 17:45 Constitutional: This is a well developed, well nourished patient who is awake, alert, jmm and in no acute distress. Head/Face: atraumatic. Eyes: EOMI, no conjunctival erythema appreciated ENT: Moist Mucus Membranes Neck: Trachea midline, Supple Chest/axilla: Normal chest wall appearance and motion. Cardiovascular: Regular rate and rhythm. No edema appreciated Respiratory: Normal respirations, no respiratory distress appreciated Abdomen/GI: Non distended, soft Back: Normal ROM Skin: General appearance color normal MS/ Extremity: Moves all extremities, no obvious deformities appreciated, no edema noted to the lower extremities Neuro: Awake and alert, normal gait Psych: Behavior is normal, Mood is normal, Patient is cooperative and pleasant Vital Signs: 17:30 BP 152 / 78; Pulse 62; Resp 23; Temp 97.8; Pulse Ox 88% on R/A; sv 18:00 BP 145 / 58; Pulse 62; Resp 15; Pulse Ox 97% ; sv 19:30 BP 125 / 53; Pulse 57; Resp 22; Pulse Ox 98% on 2 lpm NC; wh 20:30 BP 147 / 51; Pulse 65; Resp 22; Pulse Ox 100% on 2 lpm NC; wh 21:30 BP 125 / 53; Pulse 66; Resp 19; Pulse Ox 96% on 2 lpm NC; wh 22:30 BP 111 / 47; Pulse 63; Resp 18; Pulse Ox 100% on 2 lpm NC; wh 23:30 BP 122 / 62; Pulse 65; Resp 18; Pulse Ox 98% on 2 lpm NC; wh 17:30 Pt placed on O2 \T\ 2L per NC. sv MDM: 18:42 Patient medically screened. [facility] 20:30 Data reviewed: vital signs, nurses notes. Counseling: I had a detailed discussion with [facility] the patient and/or guardian regarding: the historical points, exam findings, and any diagnostic results supporting the discharge/admit diagnosis, lab results, radiology results, the need for further work-up and treatment in the hospital. 20:31 ED course: I discussed the patient with Cooper Barger whom accepted the patient for [facility] further evaluation due to hyperkalemia and hypoxia. 09/09 17:45 Order name: Basic Metabolic Panel; Complete Time: 19:54 [facility] 09/09 17:45 Order name: CBC with Diff; Complete Time: 18:57 [facility] 09/09 17:45 Order name: LFT's; Complete Time: 19:54 [facility] 09/09 17:45 Order name: Magnesium; Complete Time: 19:54 [facility] 09/09 17:45 Order name: NT PRO-BNP; Complete Time: 19:54 [facility] 09/09 17:45 Order name: PT-INR; Complete Time: 19:03 [facility] 09/09 17:45 Order name: Troponin (emerg Dept Use Only); Complete Time: 19:54 [facility] 09/09 17:45 Order name: Blood Culture Adult (2) [facility] 09/09 17:45 Order name: Lactate; Complete Time: 19:05 [facility] 09/09 19:11 Order name: Urine Microscopic Only; Complete Time: 21:44 [facility] 19:11 Order name: Urine Culture [facility] 21:00 Order name: Urine Dipstick--Ancillary (enter results); Complete Time: 21:44 [facility] 09/09 22:16 Order name: SARS-COV-2 RT PCR [facility] 09/09 17:45 Order name: XRAY Chest (1 view); Complete Time: 18:42 [facility] 09/09 17:45 Order name: EKG; Complete Time: 17:46 [facility] 09/09 17:45 Order name: Cardiac monitoring; Complete Time: 18:10 [facility] 09/09 17:45 Order name: EKG - Nurse/Tech; Complete Time: 18:11 [facility] 09/09 17:45 Order name: IV Saline Lock; Complete Time: 18:33 [facility] 17:45 Order name: Labs collected and sent; Complete Time: 18:33 [facility] 17:45 Order name: O2 Per Protocol; Complete Time: 17:47 [facility] 17:45 Order name: O2 Sat Monitoring; Complete Time: 17:47 [facility] 21:52 Order name: CT Head Brain wo Cont [facility] 09/09 22:03 Order name: CONS Physician Consult [facility] 09/09 19:09 Order name: Labs - recollect needed: green top; Complete Time: 19:20 09/09 19:11 Order name: Urine Dipstick-Ancillary (obtain specimen); Complete Time: 20:52 [facility] 09/09 19:59 Order name: EKG - Nurse/Tech; Complete Time: 20:28 [facility] Administered Medications: 20:24 Drug: D50W 50 ml Route: IVP; Site: right antecubital; 21:25 Follow up: Response: No adverse reaction 20:26 Drug: Insulin Regular Human 10 units {Co-Signature: ca1 (Svetlana Edmondson RN).} Route: IVP; Site: right antecubital; 21:25 Follow up: Response: No adverse reaction 20:28 Drug: Albuterol 2.5 mg Route: Inhalation; 20:28 Drug: Kayexalate 30 grams Route: PO; 21:25 Follow up: Response: No adverse reaction 20:50 Drug: Albuterol 2.5 mg Route: Inhalation; 20:52 Drug: Calcium Gluconate 1 grams Route: IVPB; Infused Over: 60 mins; Site: right antecubital; 21:25 Follow up: Response: No adverse reaction; IV Status: Completed infusion 21:10 Drug: Albuterol 2.5 mg Route: Inhalation; 21:26 Follow up: Response: No adverse reaction 23:15 Drug: Lasix 40 mg Route: IVP; Site: right antecubital; 23:39 Follow up: Response: No adverse reaction Disposition: 09/09/20 20:33 Hospitalization ordered by Nasir Barney for Inpatient Admission. Preliminary diagnosis are Hyperkalemia, Hypoxia, Acute Copd Exacerbation. - Bed requested for Telemetry/MedSurg (Inpatient). - Status is Inpatient Admission. - Condition is Stable. - Problem is new. - Symptoms have improved. Addendum: 09/28/2020 13:03 Co-signature as Attending Physician, Lio Lira MD Available for consultation at p s1 all times. Did not see patient unless otherwise noted. Signature is for administrative purposes and not an endorsement of care. . Signatures: Dispatcher [employer] [facility] [address] RN RN sv Mickail, Joel, PA PA jmm Williams, Irene, RN RN Cooper Barger PA PA jrCourtney Taylor RN RN David White Lio Lira MD MD [facility] Svetlana Edmondson RN ca1 Corrections: (The following items were deleted from the chart) 09/09 21:36 17:46 CORONAVIRUS+MR.LAB.BRZ ordered. [facility] 23:10 20:33 Hospitalization Ordered by Nasir Barney for Inpatient Admission. Preliminary diagnosis is Hyperkalemia; Hypoxia; Acute Copd Exacerbation. Bed requested for Telemetry/MedSurg (Inpatient). Status is Inpatient Admission. Condition is Stable. Problem is new. Symptoms have improved. [facility] 23:57 23:10 09/09/2020 20:33 Hospitalization Ordered by Nasir Barney for Inpatient Admission. Preliminary diagnosis is Hyperkalemia; Hypoxia; Acute Copd Exacerbation. Bed requested for Telemetry/MedSurg (Inpatient). Status is Inpatient Admission. Condition is Stable. Problem is new. Symptoms have improved. cg
--- NOTE | 2020-09-09 20:34 | ER ---
Nurse's Notes [facility] Name: Andrew Sanchez Age: 89 yrs Sex: Male : 1930 Arrival Date: 09/09/2020 Time: 17:34 Bed 8 Private MD: Diagnosis: Hyperkalemia;Hypoxia;Acute Copd Exacerbation Presentation: 09/09 17:30 Chief complaint: EMS states: called out by family who reported that pt has been AMS x 3 sv days. Hx UTIs. BP 167/84 HR-62 92% RA BS-218. Coronavirus screen: Client denies travel out of the [place] in the last 14 days. At this time, the client does not indicate any symptoms associated with coronavirus-19. Ebola Screen: No symptoms or risks identified at this time. Initial Sepsis Screen: Does the patient meet any 2 criteria? RR > 20 per min. No. Patient's initial sepsis screen is negative. Does the patient have a suspected source of infection? No. Patient's initial sepsis screen is negative. Risk Assessment: Do you want to hurt yourself or someone else? Patient reports no desire to harm self or others. Onset of symptoms was September 06, 2020. 17:30 Method Of Arrival: EMS: [facility] sv 17:30 Acuity: JAMIE 2 sv Triage Assessment: 17:30 General: Appears in no apparent distress. comfortable, well developed, Behavior is sv calm, cooperative, appropriate for age. Pain: Denies pain. Neuro: Level of Consciousness is awake, alert, obeys commands, Oriented to person, place, time, situation, Moves all extremities. Full function Speech is normal. Respiratory: Airway is patent Respiratory effort is even, unlabored, Respiratory pattern is regular, symmetrical. Derm: Skin is normal. Musculoskeletal: Range of motion: intact in all extremities. Historical: - Allergies: 17:38 No Known Allergies; sv - PMHx: 17:38 Arthritis; Emphysema; Diabetes - IDDM; Hypertension; sv - Immunization history:: Adult Immunizations up to date. - Social history:: Smoking status: Patient denies any tobacco usage or history of. Screenin:38 Abuse screen: Denies threats or abuse. Denies injuries from another. Nutritional sv screening: No deficits noted. Tuberculosis screening: No symptoms or risk factors identified. Fall Risk None identified. Assessment: 17:45 Reassessment: Patient appears in no apparent distress at this time. No changes from previously documented assessment. See triage assessment. 19:15 General: Appears in no apparent distress. Behavior is calm, cooperative. Pain: Denies wh pain. Neuro: Level of Consciousness is awake, alert, obeys commands, Oriented to person, place. Cardiovascular: Heart tones S1 S2. Respiratory: Airway is patent Respiratory effort is even, unlabored, Respiratory pattern is regular, symmetrical, Breath sounds are diminished. Respiratory: Reports shortness of breath. GI: Abdomen is non-distended. : No deficits noted. EENT: No signs and/or symptoms were reported regarding the EENT system. Derm: Skin is intact. 20:30 Reassessment: Patient appears in no apparent distress at this time. No changes from previously documented assessment. Patient and/or family updated on plan of care and expected duration. Pain level reassessed. Musculoskeletal: Circulation, motion, and sensation intact. 21:24 Reassessment: Hospitalist at bedside explaining POC need for admit. 22:30 Reassessment: Patient appears in no apparent distress at this time. Patient and/or wh family updated on plan of care and expected duration. Pain level reassessed. 23:30 Reassessment: Patient appears in no apparent distress at this time. Patient and/or wh family updated on plan of care and expected duration. Pain level reassessed. Vital Signs: 17:30 BP 152 / 78; Pulse 62; Resp 23; Temp 97.8; Pulse Ox 88% on R/A; sv 18:00 BP 145 / 58; Pulse 62; Resp 15; Pulse Ox 97% ; sv 19:30 BP 125 / 53; Pulse 57; Resp 22; Pulse Ox 98% on 2 lpm NC; wh 20:30 BP 147 / 51; Pulse 65; Resp 22; Pulse Ox 100% on 2 lpm NC; wh 21:30 BP 125 / 53; Pulse 66; Resp 19; Pulse Ox 96% on 2 lpm NC; wh 22:30 BP 111 / 47; Pulse 63; Resp 18; Pulse Ox 100% on 2 lpm NC; 23:30 BP 122 / 62; Pulse 65; Resp 18; Pulse Ox 98% on 2 lpm NC; 17:30 Pt placed on O2 \T\ 2L per NC. ED Course: 17:34 Patient arrived in ED. sv 17:37 Triage completed. sv 17:38 Arm band placed on. sv 17:38 Patient has correct armband on for positive identification. Placed in gown. Bed in low sv position. Call light in reach. Side rails up X2. hospital monitor on. Pulse ox on. NIBP on. Door closed. Head of bed elevated. 17:40 Grupo Coates RN is Primary Nurse. jl7 17:44 Nigel Donaldson PA is PHCP. [facility] 17:44 Lio Lira MD is Attending Physician. [facility] 18:09 EKG done, by ED staff, reviewed by Nigel POOLE. 3 18:16 Initial lab(s) drawn, by me, sent to lab. Inserted saline lock: 20 gauge in right vg1 antecubital area, using aseptic technique. Blood collected. 18:16 First set of blood cultures drawn by me. vg1 18:17 XRAY Chest (1 view) In Process Unspecified. EDMS 18:30 Second set of blood cultures drawn by me. vg1 18:30 COVID swab sent to lab. jp3 19:59 Primary Nurse role handed off by Grupo Coates RN mw2 20:02 David White is Primary Nurse. 20:32 Nasir Barney is Hospitalizing Provider. [facility] 21:30 Straight cath inserted, using sterile technique, Specimen obtained. Returned clear yellow urine. Patient tolerated well. 21:44 [facility] spoke to Raphael the patient [facility] notification number is mw2 [id number]. 23:37 No provider procedures requiring assistance completed. Patient admitted, IV remains in place. Administered Medications: 20:24 Drug: D50W 50 ml Route: IVP; Site: right antecubital; 21:25 Follow up: Response: No adverse reaction 20:26 Drug: Insulin Regular Human 10 units {Co-Signature: ca1 (Svetlana Edmondson RN).} Route: IVP; Site: right antecubital; 21:25 Follow up: Response: No adverse reaction 20:28 Drug: Albuterol 2.5 mg Route: Inhalation; 20:28 Drug: Kayexalate 30 grams Route: PO; 21:25 Follow up: Response: No adverse reaction 20:50 Drug: Albuterol 2.5 mg Route: Inhalation; 20:52 Drug: Calcium Gluconate 1 grams Route: IVPB; Infused Over: 60 mins; Site: right wh antecubital; 21:25 Follow up: Response: No adverse reaction; IV Status: Completed infusion 21:10 Drug: Albuterol 2.5 mg Route: Inhalation; 21:26 Follow up: Response: No adverse reaction 23:15 Drug: Lasix 40 mg Route: IVP; Site: right antecubital; 23:39 Follow up: Response: No adverse reaction Outcome: 20:33 Decision to Hospitalize by Provider. jesus manuel 23:37 Admitted to Med/surg accompanied by tech, via stretcher, room 212, with oxygen, with chart, Report called to Radha Arteaga RN 23:37 Condition: stable 23:37 Instructed on the need for admit. 23:57 Patient left the ED. Signatures: Dispatcher [employer] EDDeidre Ennis, RN RN Nigel Farfan PA PA [facility] Grupo Coates RN RN jl7 Celi Mckeon 3 David White Brett Melo 2 [place] jp3 Silvana Kim RN RN vg1 Svetlana Edmondson RN ca1
[2020-09-09] MEDS ORDERED: CALCIUM GLUCONATE 1 GM IVPB 1 GM/50 ML BAG IV ONE (20:51)
[2020-09-09 21:12] LABS: Urine Bacteria NONE SEEN /HPF (NONE SEEN); Urine RBC NONE SEEN /HPF (NONE SEEN)
[2020-09-09 21:12] LABS: Urine Blood NEGATIVE (NEG); Urine Glucose NEGATIVE (NEG); Urine Protein NEGATIVE (NEG); Urine Specific Gravity 1.025 (1.005-1.030)
[2020-09-09] MEDS ORDERED: FUROSEMIDE 40 MG/4 ML VIAL ONE (22:16)
[2020-09-09] MEDS ORDERED: ONDANSETRON 4 MG/2 ML VIAL IV PRN (23:47)
--- NOTE | 2020-09-10 00:36 | P.HP ---
Certification for Inpatient Patient admitted to: Inpatient With expected LOS: >2 Midnights Patient will require the following post-hospital care: None Practitioner: I am a practitioner with admitting privileges, knowledge of patient current condition, hospital course, and medical plan of care. Services: Services provided to patient in accordance with Admission requirements found in Title 42 Section 412.3 of the Code of Federal Regulations Patient History Date of Service: 09/10/20 Primary Care Provider: DAXA Reason for admission: AMS, Hypoxia, CHF, CURRY, Hyperkalemia History of Present Illness: This is an 89-year-old male that was brought to the emergency room via EMS after outpatient found that patient was more acutely altered today than he has been in the past few days. the patient stated that for the past 3-5 days she has noticed that he is not eating and drinking as much as usual. That he is starting to have insomnia at night time and vivid nightmares and that he is having weakness and altered mentation. The patient has a history of emphysema, diabetes mellitus, hypertension. EMS on scene found the patient was hypoxic and was put on oxygen. Room-air saturation in the emergency room was 88%. Patient was worked up in the emergency room and found to have renal insufficiency with a creatinine of 1.53, BUN of 26 and a potassium of 6.0 non hemolyzed. Patient also found to have a 17.1 white blood cell count and a BNP of 7656. Chest x- ray showed congestive heart failure. Patient on evaluation in the emergency room has repetitive questioning and appears altered. Patient alert to person and place only. Allergies No Known Allergies Allergy (Verified 05/27/20 20:15) Home medications list reviewed: Yes Home Medications: Aspirin Enteric Coated [Ecotrin*] 1 tab PO DAILY 08/29/20 Carvedilol [Coreg] 1 tab PO BID 08/29/20 Clopidogrel Bisulfate [Plavix] 1 tab PO DAILY 08/29/20 Codeine 30/Acetaminophen 300 1 tab PO DAILY PRN 08/29/20 Glimepiride 1 tab PO DAILY 08/29/20 Losartan Potassium 1 tab PO DAILY 08/29/20 Metformin HCl 1 tab PO DAILY 08/29/20 Metoprolol Tartrate 1 tab PO DAILY 08/29/20 Mirtazapine 1 tab PO DAILY 08/29/20 Propafenone 425 1 cap PO BID 08/29/20 Simvastatin 1 tab PO DAILY 08/29/20 Warfarin Sodium 1 tab PO DAILY 08/29/20 Fluconazole [Diflucan] 100 mg PO DAILY #7 tablet 08/30/20 Losartan Potassium [Cozaar*] 100 mg PO DAILY #30 tablet 08/30/20 Minocycline HCl 100 mg PO DAILY #7 capsule 08/30/20 Smz./Tmp. [Bactrim Ds 800 MG/160 MG] 1 each PO DAILY #7 tab 08/30/20 Nystatin 60 gm TP BID #1 powder 09/02/20 - Past Medical/Surgical History Diabetic: Yes -: NIDDM-type 2 -: HTN -: HLD -: SEVERE ARTHRITIS -: PROSTATE CA-CANCER FREE -: EMPHYSEMA -: CATARACT SX BOTH EYES -: ABDOMINAL HERNIA REPAIR - Family History Family History: Reviewed- Non-Contributory - Family History parents Notes: no medical hx per pt. unable to obtain - Social History Smoking Status: Never smoker Smoking therapy provided: No Alcohol use: No CD- Drugs: No Caffeine use: Yes Place of Residence: Home Review of Systems General: Weakness, Malaise Eyes: Unremarkable ENT: Unremarkable Respiratory: Shortness of Breath Cardiovascular: Unremarkable Gastrointestinal: Unremarkable Genitourinary: Unremarkable Musculoskeletal: Unremarkable Integumentary: Unremarkable Neurological: As per HPI Lymphatics: Unremarkable Physical Examination - Vital Signs Temperature: 97.8 F Blood Pressure: 145/58 Pulse: 62 Respirations: 16 Pulse Ox (%): 97 (2 L nasal cannula) - Physical Exam General: Alert, In no apparent distress, Oriented x2 HEENT: Normocephalic, PERRLA, Other (Mucous membranes dry), EOMI Neck: 2+ carotid pulse no bruit, JVD not distended, No Thyromegaly Respiratory: Clear to auscultation bilaterally, Normal air movement Cardiovascular: No edema, Normal pulses, Regular rate/rhythm, Normal S1 S2, No gallops, No rubs, No murmurs Capillary refill: <2 Seconds Gastrointestinal: Normal bowel sounds, Soft and benign, Non-distended, No ascites, No tenderness, No masses, No rebound, No guarding Musculoskeletal: No clubbing, No swelling, No contractures, No erythema, No tenderness, No warmth Integumentary: No rashes, No breakdown, No significant lesion, No tenderness/swelling, No erythema, No warmth, No cyanosis Neurological: Normal speech, Normal strength at 5/5 x4 extr, Normal tone, Sensation intact, Cranial nerves 3-12 intact, Abnormal affect Lymphatics: No axilla or inguinal lymphadenopathy - Studies Laboratory Data (last 24 hrs) 09/09/20 19:20: Sodium 137, Potassium 6.0 H*, BUN 26 H, Creatinine 1.53 H, Glucose 160 H, Magnesium 2.0, Total Bilirubin 0.4, AST 16, ALT 15, Alkaline Phosphatase 72 09/09/20 18:16: PT 13.1 H, INR 1.11 09/09/20 18:16: WBC 17.1 H, Hgb 10.7 L, Hct 33.6 L D, Plt Count 360 Assessment and Plan - Problems (Diagnosis) (1) Congestive heart failure Current Visit: Yes Status: Acute Plan: Patient has moderately elevated BNP with signs of congestive heart failure on chest x-ray. Cardiology will be consulted and patient will be started on lasxi twice daily Qualifiers: Heart failure type: unspecified Heart failure chronicity: acute Qualified Code(s): I50.9 - Heart failure, unspecified (2) Hypoxia Current Visit: Yes Status: Acute Plan: Patient has remained on nasal cannula in the emergency room since his initial oxygen saturation. Has done remarkably well on 2 L nasal cannula. Will continue on this for the time being and will continue to monitor is pulse oximetry and other vital signs to ensure his hypoxia is not getting worse. Plan is also to get an ABG to ensure he is not hypercapnic secondary to his altered mentation (3) Altered mental status Current Visit: Yes Status: Acute Plan: Patient alert and oriented to person and place only and has repetitive questioning and some mild aggression. Patient will have a CT of his head done an MRI brain to make sure there is no neurologic abnormality. An RPR has also been put in to make sure there is no tertiary syphilis based on his age. A we will draw ABG to rule a hypercapnia and others findings for acidosis that could be leading to his altered mentation along with checking thyroid studies. Patient did have a mild elevation in his white cell count but no systemic findings of infection otherwise. Will continue to monitor for elevation of white cell count and fever which could be causing the altered mentation. Qualifiers: Altered mental status type: delirium Qualified Code(s): R41.0 - Di sorientation, unspecified (4) Acute kidney injury Current Visit: Yes Status: Acute Plan: Patient has mild elevation in his renal function with a creatinine 1.53 and a BUN of 26 and a potassium is 6.0. Nephrology has been consulted and potassium has been corrected. We will recheck his labs in the morning for stability. Will recheck potassium tonight after initial therapy to ensure that it has decreased as well. Will wait further orders by nephrology. (5) Hyperkalemia Current Visit: Yes Status: Acute Plan: Potassium has been corrected with a multitude of modalities. We will recheck potassium tonight to ensure that is decreasing. Will continue to monitor basic labs throughout the next couple of days. (6) COPD (chronic obstructive pulmonary disease) Current Visit: No Status: Chronic Plan: Patient has chronic COPD. No acute bronchoconstriction at this time. Will continue to monitor this and if need be will be put on breathing treatments and steroids. Qualifiers: COPD type: emphysema Emphysema type: panlobular Qualified Code(s): J43.1 - Panlobular emphysema (7) DM2 (diabetes mellitus, type 2) Current Visit: No Status: Chronic Plan: Blood glucose will be monitored in in the hospital setting. Sliding scale will be initiated. Qualifiers: Diabetes mellitus manager long term care insulin use: with manager long term care use Diabetes mellitus complication status: without complication Qualified Code(s): E11.9 - Type 2 diabetes mellitus without complications; Z79.4 - long term acute care registered nurse (current) use of insulin Discharge Plan: Home Plan to discharge in: Greater than 2 days - Advance Directives Does patient have a Living Will: No Does patient have a Durable POA for Healthcare: No - Code Status/Comfort Care Code Status Assessed: No Critical Care: No Time Spent Managing Pts Care (In Minutes): 80
[2020-09-10 00:43] VITALS: BMI 23.9
[2020-09-10] MEDS ORDERED: GLUCAGON 1 MG/VIAL IM PRN (00:46)
[2020-09-10] MEDS ORDERED: D50W 25 GM/50 ML SYRINGE IV PRN (00:46)
[2020-09-10 02:24] LABS: Absolute Lymphocytes (CBC) 2.1 K/uL (0.7-4.9); Basophils % 1.1 % (0-1.3); Hematocrit 31.6 % (39.6-49.0); Lymphocytes % 12.9 % (15.3-44.8); MPV 9.2 fL (7.6-11.3); RBC Red Blood Cell Count 3.32 M/uL (4.33-5.43)
[2020-09-10 02:36] LABS: Potassium 5.1 mmol/L (3.5-5.1); Thyroid Stimulating Hormone 3.26 uIU/mL (0.360-3.740)
[2020-09-10 03:24] LABS: Urine Protein/Creatinine Ratio 1.93 ratio (<0.15)
[2020-09-10] MEDS: INSULIN -REGULAR HUMAN 50 UNIT/0.5 ML ML SQ SCH ×4 (07:30→19:46)
[2020-09-10] MEDS ORDERED: FUROSEMIDE 20 MG/ 2ML VIAL IV SCH (09:00)
--- NOTE | 2020-09-10 11:16 | RAD REPORT ---
EXAM DESCRIPTION: CT - Head Brain Wo Cont - 09/10/2020 6:55 am CLINICAL HISTORY: Confused; Declining state TECHNIQUE: Contiguous axial CT images obtained through the brain without IV contrast. Coronal and sa gittal reformatted images were provided. This exam was performed according to our departmental dose-optimization program, which includes autom ated exposure control, adjustment of the mA and/or kV according to patient size and/or use of iterati ve reconstruction technique. COMPARISON: None available for comparison FINDINGS: Brain: There is mild cerebral atrophy. Bilateral periventricular and subcortical white mat ter hypodensity most likely related to chronic microvascular angiopathy. No focal mass effect. Rice-w laurel matter differentiation is within normal limits. No hemorrhage. Ventricles: Borderline ventricular prominence compared with degree of parenchymal volume loss. Extra-axial spaces: No extra-axial collection or hemorrhage. Paranasal sinuses and mastoid air cells: Well-aerated Vessels: There is atherosclerotic disease of the internal carotid and vertebral arteries bilaterally. Bones: Unremarkable Soft tissues: Unremarkable IMPRESSION: 1. No acute hemorrhage, focal mass or large territory infarction. 2. Borderline ventricular prominence compared with degree of parenchymal volume loss. Prominent carlos tral ventricles may be secondary to central cortical atrophy versus normal pressure hydrocephalus. 3. Other findings as above. Electronically signed by: Debora Gutierres MD 09/09/2020 10:38 PM ENVIRONMENTAL ISSUES INSTRUCTOR Due to temporary technical issues with the PACS/Fluency reporting system, reports are being signed by the in house radiologist without review as a courtesy to ensure prompt reporting. The interpreting r adiologist is fully responsible for the content of the report.
--- NOTE | 2020-09-10 13:24 | P.PN ---
Subjective Date of Service: 09/10/20 Primary Care Provider: DAXA Chief Complaint: AMS, Hypoxia, CHF, CURRY, Hyperkalemia Patient is awake and more interactive. Altered mental status has resolved. I spoke to the will mentioned patient has been experiencing intermittent confusion, memory issues and occasional agitation at night which she calls . Noted patient has a slight facial deviation to the right. Spouse complaint of facial deviation. Hos altered mental status is could be related to CVA. He refused echocardiogram and MRI. He he was eating his breakfast without any issue when I saw him this morning. Physical Examination - Vital Signs Temperature: 97.1 F Blood Pressure: 116/55 Pulse: 66 Respirations: 23 Pulse Ox (%): 95 - Physical Exam General: Oriented x2, Other (Awake) HEENT: PERRLA, EOMI Neck: Supple, JVD not distended Respiratory: Clear to auscultation bilaterally, Normal air movement Cardiovascular: No edema, Regular rate/rhythm, Normal S1 S2 Capillary refill: <2 Seconds Gastrointestinal: Normal bowel sounds, Soft and benign, Non-distended, No tenderness Musculoskeletal: No swelling, No erythema, No tenderness Integumentary: No rashes Neurological: Normal strength at 5/5 x4 extr, Other (No limb weakness. Mild right facial droop.) - Studies Laboratory Data (last 24 hrs) 09/09/20 19:20: Sodium 137, Potassium 6.0 H*, BUN 26 H, Creatinine 1.53 H, Glucose 160 H, Magnesium 2.0, Total Bilirubin 0.4, AST 16, ALT 15, Alkaline Phosphatase 72 09/09/20 18:16: PT 13.1 H, INR 1.11 09/09/20 18:16: WBC 17.1 H, Hgb 10.7 L, Hct 33.6 L D, Plt Count 360 Assessment And Plan - Current Problems (Diagnosis) (1) Altered mental status Current Visit: Yes Status: Acute Qualifiers: Altered mental status type: delirium Qualified Code(s): R41.0 - Disorientation, unspecified (2) Acute kidney injury Current Visit: Yes Status: Acute (3) Hyperkalemia Current Visit: Yes Status: Acute (4) COPD (chronic obstructive pulmonary disease) Current Visit: No Status: Chronic Qualifiers: COPD type: emphysema Emphysema type: panlobular Qualified Code(s): J43.1 - Panlobular emphysema (5) DM2 (diabetes mellitus, type 2) Current Visit: No Status: Chronic Qualifiers: Diabetes mellitus intermediate project manager insulin use: with intermediate project manager use Diabetes mellitus complication status: without complication Qualified Code(s): E11.9 - Type 2 diabetes mellitus without complications; Z79.4 - local company intermodal truck driver (current) use of insulin - Plan Hyperkalemia resolved. Mental status has significantly improved. I suspect acute to subacute CVA. Patient refuses MRI of the brain and echocardiogram. Start aspirin and statins. I suspect her hypoxia is chronic and secondary to emphysema. Home oxygen qualification on discharge. IV hydration to treat acute renal failure. Cause of leukocytosis is unclear. Patient is receiving Levaquin. Follow blood cultures.
[2020-09-10] MEDS: NA CHLORIDE 0.9% 1,000 ML IV SCH (13:41)
[2020-09-10] MEDS: Levofloxacin500mg IV 500 MG/100 ML BAG IV SCH (13:42)
[2020-09-10] MEDS: ACETAMINOPHEN 500 MG TAB PO PRN ×2 (14:11→19:40)
--- NOTE | 2020-09-10 14:40 | CON ---
Date of Consultation: 09/10/2020 Reason For Consultation: Elevated BUN and creatinine, fluid management. History Of Present Illness: This is an 89-year-old gentleman with significant past medical history of hypertension, diabetes complicated with neuropathy, hyperlipidemia, arthritis, prostate cancer, emphysema, apparently the patient brought by his because of altered mental status for the last few days. The patient denied taking any nonsteroidal, no IV contrast. Upon arrival to the hospital, creatinine was 1.5 with hyperkalemia, potassium up to 6. For that reason, we have been consulted. The patient was started on IV hydration. The patient was hypoxemic. The patient undergone CT, no CVA. Reviewing the record for the patient, the patient was on metformin, losartan. Has insulting medication. Past Medical History: Includes; 1. Diabetes complicated with neuropathy. 2. Arthritis. 3. Hypertension. 4. Hyperlipidemia. 5. Emphysema. Past Surgical History: Includes; 1. Hernia repair. 2. Cataract surgery. Family History: Positive for hypertension. Social History: Denied smoking, denied drinking, denied drugs abuse. Home Medications: Include; 1. Aspirin. 2. Carvedilol. 3. Plavix. 4. Codeine. 5. Glimepiride. 6. Losartan. 7. Metformin. 8. Metoprolol. 9. Mirtazapine. 10. Simvastatin. 11. Coumadin. 12. Fluconazole. 13. Bactrim. 14. Nystatin. Review of Systems: Head and Neck: No red eye. No ear pain. GI: Decreased intake. : No polyuria. No dysuria. No hematuria. Lockstitch Zipper Setter: Not applicable. Respiratory: Has shortness of breath. Cardiovascular: Has orthopnea. Endocrine: No polydipsia. Skin: No rash. Neuro: Has fall. Has altered mental status. Musculoskeletal: Low back pain. Physical Examination: General: When I saw the patient, the patient was lying in bed. Vital Signs: Blood pressure 116/55, pulse of 66, afebrile. Upon presentation, the patient was having occasional low blood pressure down to 100. Chest: Faint rales bilateral base. Heart: S1, S2. Systolic murmur. Abdomen: Soft, nontender. Extremities: Trace edema. Neuro: Alert. Confused. No focality. Laboratory Data: Chest x-ray; cardiomegaly, infiltration on the right lower base. CT head; no acute finding. WBC 16.5, H and H 10.1/31.6, platelet 326. Sodium 139, potassium 5.1, bicarb 31, BUN 27, creatinine 1.4, GFR 45, calcium 9.4. BNP 7842. TSH 3.2. Urinalysis; PC ratio 1.9. Current Medications: The patient on include Lovenox, Lasix 20 mg b.i.d., Tylenol, Zofran. Assessment And Plan: 1. Acute kidney injury secondary to prerenal, superimposed with losartan, metformin, and Bactrim. I am going discontinue the Lasix and start the patient on gentle hydration. We will send for the workup for the patient, reviewing the record for the patient. The patient's baseline creatinine around 1.3 to 1.1 with GFR of 50 to 41 as by May 2020. We will send for renal ultrasound. Hold losartan. Send for protein creatinine and PTH to evaluate the chronicity of the disease. 2. The elevation in the BNP could be related to the pneumonia. We will follow up with hospitalist, start the patient on antibiotic, discontinue Bactrim. 3. Hypertension, controlled, optimal. Given the acute kidney injury, hold losartan. 4. Hyperkalemia. Discontinue Bactrim, discontinue losartan, and start hydration. 5. Diabetes as by primary with the presence of acute kidney injury. Hold metformin. 6. Pneumonia. Start the patient on Levaquin. 7. Altered mental status, mostly metabolic. We will follow up CT negative. Follow up with hospitalist. time spend exam the patient face to face , place order , discussed the case with other steam cleaner hospitalist and other consulatant 75 min. LATESHA Voice ID: [id number] Report ID: [id number] [facility]atti
[2020-09-10] MEDS: ENOXAPARIN 40 MG/0.4 ML SQ SCH (17:14)
--- NOTE | 2020-09-10 19:04 | RAD REPORT ---
EXAM DESCRIPTION: US - Renal Ultrasound-Complete - 09/10/2020 6:52 pm CLINICAL HISTORY: . Acute renal insufficiency COMPARISON: None. FINDINGS: The right kidney measures 9 cm with a normal echotexture. 3 centimeter cyst The left kidney measures 10 cm with an increased echotexture. 2.5 centimeter cyst Hydronephrosis is not seen. No gross abnormality of bladder IMPRESSION: Increased left renal echotexture consistent with parenchymal disease. Bilateral renal cysts Hydronephrosis.
--- NOTE | 2020-09-10 19:33 | EKG ---
Test Date: 2020-09-09 Test Time: 20:14:18 Admitting Counselor: MEASUREMENT RESULTS: Intervals: Rate: 59 IA: 208 QRSD: 98 QT: 416 QTc: 411 [place]: P: 33 IA: 208 QRS: -35 T: 22 INTERPRETIVE STATEMENTS: Sinus bradycardia Left axis deviation Incomplete right bundle branch block Abnormal ECG Compared to ECG 08/28/2020 10:29:47 Left-axis deviation now present Incomplete right bundle-branch block now present Sinus rhythm no longer present Atrial premature complex(es) no longer present T-wave abnormality no longer present Electronically Signed On 09-10-20 19:32:23 GLUER MACHINE OPERATOR by Kevin Sneed
[2020-09-11 00:29] LABS: RPR (Rapid Plasma Reagin) NON-REACT (NON-REACT)
[2020-09-11 04:29] LABS: Absolute Lymphocytes (CBC) 1.7 K/uL (0.7-4.9); Basophils % 0.9 % (0-1.3); Hematocrit 29.7 % (39.6-49.0); Lymphocytes % 13.2 % (15.3-44.8); MPV 8.9 fL (7.6-11.3); RBC Red Blood Cell Count 3.08 M/uL (4.33-5.43)
[2020-09-11 04:32] LABS: Albumin 2.5 g/dL (3.4-5.0); Phosphorus 4.1 mg/dL (2.5-4.9); Potassium 4.4 mmol/L (3.5-5.1)
[2020-09-11] MEDS: INSULIN -REGULAR HUMAN 50 UNIT/0.5 ML ML SQ SCH ×4 (07:30→20:38)
--- NOTE | 2020-09-11 08:11 | CON ---
Date of Consultation: 09/10/2020 Reason For Consultation: Altered mental status and mild congestive heart failure. History Of Present Illness: The patient is an 89-year-old white male with history of diabetes, hyper tension, emphysema, degenerative joint disease, who came in with altered mental status. No chest renetta n, shortness of breath, nausea, vomiting, diaphoresis, PND, orthopnea, pedal edema, palpitation, or s yncope. The patient denied any fever or chills. Chest x-ray showed mild CHF and I was consulted. H is EKG showed sinus rhythm with PACs. Past Medical History: As stated above. Allergies: NONE. Review of Systems: Negative. Social History: Negative. Family History: Negative. Medications: Include aspirin, metformin, glimepiride, and Zocor. Physical Examination: Vital Signs: Stable. Afebrile. Sinus rhythm. HEENT: Negative. Neck: Supple. No bruit. Chest: Clear to auscultation and percussion. Cardiac: Reveals regular rhythm and rate. No murmurs, gallops, or rubs. Abdomen: Benign. Extremities: Revealed no clubbing, cyanosis, or edema. Diagnostic Data: Creatinine is 1.47. White count is 16,000, hemoglobin of 10. BNP is 7842. Impression And Plan: 1.Possible acute on chronic diastolic congestive heart failure. We should obtain a 2D echocardiogra m. We should add Lasix to his regimen when he goes home, salt restriction and fluid restriction. 2.Altered mental status. 3.Diabetes. 4.Hypertension. 5.Emphysema. 6.Degenerative joint disease. 7.Elevated white count. 8.Mild anemia. 9.Renal insufficiency stage 3. 10.Elevated BNP. We will see what the echocardiogram shows. Continue present regimen including Lasix. The patient ca n go home as soon as Dr. Barney is comfortable with that. NB/MANAL Voice ID: [id number] Report ID: [id number]
[2020-09-11] MEDS: ASPIRIN EC 81 MG TAB PO SCH (08:35)
[2020-09-11] MEDS: NA CHLORIDE 0.9% 1,000 ML IV SCH ×2 (10:00→14:13)
[2020-09-11] MEDS: Levofloxacin500mg IV 500 MG/100 ML BAG IV SCH (13:38)
--- NOTE | 2020-09-11 16:33 | P.PN ---
Subjective Date of Service: 09/11/20 Primary Care Provider: DAXA Chief Complaint: AMS, Hypoxia, CHF, CURRY, Hyperkalemia Patient has no complain. He wants to go home. Altered mental status has resolved. Repeat blood culture: No growth to date. Urine culture: No significant growth. Chest x-ray: No pneumonia. Physical Examination - Vital Signs Temperature: 97.5 F Blood Pressure: 99/45 Pulse: 77 Respirations: 18 Pulse Ox (%): 92 - Physical Exam General: In no apparent distress HEENT: Mucous membr. moist/pink Neck: JVD not distended Respiratory: Clear to auscultation bilaterally, Normal air movement Cardiovascular: No edema, Regular rate/rhythm, Normal S1 S2 Gastrointestinal: Normal bowel sounds, Soft and benign, No tenderness Neurological: Normal speech, Normal strength at 5/5 x4 extr, Other (Left facial droop.) - Studies Microbiology Data (last 24 hrs): 09/09/20 18:30 Blood - Blood Aerobic Blood Culture - Final 09/09/20 18:30 Blood - Blood Blood Culture Gram Stain - Final 09/09/20 18:30 Blood - Blood Anaerobic Blood Culture - Final 09/09/20 18:30 Blood - Blood Gram Stain - Final Assessment And Plan - Current Problems (Diagnosis) (1) Altered mental status Current Visit: Yes Status: Acute Qualifiers: Altered mental status type: delirium Qualified Code(s): R41.0 - Disorientation, unspecified (2) Acute kidney injury Current Visit: Yes Status: Acute (3) Hyperkalemia Current Visit: Yes Status: Acute (4) COPD (chronic obstructive pulmonary disease) Current Visit: No Status: Chronic Qualifiers: COPD type: emphysema Emphysema type: panlobular Qualified Code(s): J43.1 - Panlobular emphysema (5) DM2 (diabetes mellitus, type 2) Current Visit: No Status: Chronic Qualifiers: Diabetes mellitus longterm insulin use: with medical terminologist use Diabetes mellitus complication status: without complication Qualified Code(s): E11.9 - Type 2 diabetes mellitus without complications; Z79.4 - predatory animal exterminator (current) use of insulin - Plan I suspect acute to subacute CVA. Patient refuses MRI of the brain and echocardiogram. wants the MRI to be done. I am told by the crystal growing technician, but patient could not lie flat on the MRI table because of patient inability to extend his neck due to pain. I doubt patient may lie still for the MRI. I ordered morphine IV for pain to be given and attempt to do MRI for the 2nd time. crystal growing technician informed about it. I discussed sedation for the MRI with the and she is reluctant about it. Consnsus is to try the MRI with pain medication for the 2nd time for now. Continue aspirin and statins. Check lipid profile. I suspect her hypoxia is chronic and secondary to emphysema. Home oxygen qualification on discharge. IV hydration to treat acute renal failure. Serum creatinine is improving. Monitor renal function Leukocytosis is trending down. Cause of leukocytosis is unclear. Chest x-ray reviewed and no pneumonia reported. Patient is on Levaquin because of leukocytosis. Monitor for dementia with behavioral abnormalities and sundowning. Will try Seroquel at bedtime for sundowning. Case discussed with the Graciela Sanchez and daughter Raina Sanchez.
[2020-09-11] MEDS ORDERED: MORPHINE 2 MG/ML SYR IV ONE (16:55)
[2020-09-11] MEDS ORDERED: NA CHLORIDE 0.9% 1,000 ML IV SCH (17:35)
[2020-09-11] MEDS: ENOXAPARIN 40 MG/0.4 ML SQ SCH (17:36)
--- NOTE | 2020-09-11 20:56 | RAD REPORT ---
EXAM DESCRIPTION: MRI - Brain Wo Cont - 09/11/2020 8:07 pm CLINICAL HISTORY: Alteration of consciousness/confusion COMPARISON: Head CT August 28 2020 TECHNIQUE: Axial, sagittal, and coronal magnetic images of the brain were obtained. Contrast was not requested FINDINGS: Mild to moderate signal within periventricular, deep subcortical white matter Diffusion-weighted/ADC mapping does not reveal evidence of acute infarction. Ventricles are moderately dilated. There is mild cortical atrophy. . An extra-axial fluid collection is not present Fluid within the sinuses/mastoids is not noted IMPRESSION: Moderate dilatation of the ventricles. This may be secondary to white matter atrophy. No rmal pressure hydrocephalus can also have this appearance and should be correlated clinically. Mild to moderate signal within periventricular, deep and subcortical white matter likely ischemic hodan nges secondary to small vessel disease
[2020-09-11] MEDS ORDERED: QUETIAPINE 25 MG TAB PO SCH (21:00)
--- NOTE | 2020-09-11 23:56 | PN ---
Date of Progress Note: 09/11/2020 Subjective: The patient was admitted with ?CVA. The patient is being confused. The patient had acute kidney injury. Objective: Vital Signs: Blood pressure 125/60, pulse of 75. The patient had good urine output of 650. Chest: Faint rales bilateral bases. Heart: S1, S2. Systolic murmur. Abdomen: Soft, nontender. EXTREMITIES: Trace edema. NEUROLOGIC: Alert. Facial droop. Laboratory Data: WBC 13.1, H and H 9.6/29.7. Sodium 139, potassium 4.4, bicarb 34, BUN 38, creatinine 1.7, calcium 8.6, phosphorus 4.1. Albumin 2.7. PTH 46. Current Medications: The patient on include aspirin, Lovenox, quetiapine, Zofran, IV fluid. Assessment And Plan: 1. Acute kidney injury secondary to prerenal, looked normal volume. I am going to discontinue IV fluid. We will monitor the patient. 2. Hypertension, controlled, optimal. Continue current medication. Keep holding KAREN inhibitor or ARB. 3. Cerebrovascular accident. Continue supportive care. Waiting for MRI. 4. 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 Looked to me normal volume. Discontinue IV fluid for the time being. 5. Diabetes. Keep holding metformin. Continue sliding scale. time spend exam the patient face to face , place order , discussed the case with other team sports sales associate hospitalist and other consulatant 45 min. LATESHA Voice ID: [id number] Report ID: [id number] MTDD
[2020-09-12] MEDS: ACETAMINOPHEN 500 MG TAB PO PRN (02:57)
[2020-09-12] MEDS: INSULIN -REGULAR HUMAN 50 UNIT/0.5 ML ML SQ SCH ×3 (07:30→16:30)
[2020-09-12 07:49] LABS: Albumin 2.4 g/dL (3.4-5.0); Potassium 4.6 mmol/L (3.5-5.1)
[2020-09-12] MEDS: ASPIRIN EC 81 MG TAB PO SCH (08:43)
--- NOTE | 2020-09-12 11:30 | P.PN ---
Subjective Date of Service: 09/12/20 Primary Care Provider: DAXA Chief Complaint: AMS, Hypoxia, CHF, CURRY, Hyperkalemia Patient has no complain. Altered mental status has resolved. MRI of the brain performed yesterday. No issues overnight. Physical Examination - Vital Signs Temperature: 97.8 F Blood Pressure: 99/51 Pulse: 78 Respirations: 18 Pulse Ox (%): 100 - Physical Exam General: Oriented x2 HEENT: Mucous membr. moist/pink Neck: Supple Respiratory: Clear to auscultation bilaterally, Normal air movement Cardiovascular: No edema, Regular rate/rhythm, Normal S1 S2 Gastrointestinal: Normal bowel sounds, Soft and benign, No tenderness Musculoskeletal: No swelling, No erythema, Other (Contracted bilateral knees) Integumentary: No rashes Neurological: Other (Mild left facial droop.) - Studies Microbiology Data (last 24 hrs): 09/09/20 20:55 Clean Catch Urine [place] Count - Final 09/09/20 20:55 Clean Catch Urine - Final 09/09/20 18:30 Blood - Blood Aerobic Blood Culture - Final 09/09/20 18:30 Blood - Blood Blood Culture Gram Stain - Final 09/09/20 18:30 Blood - Blood Anaerobic Blood Culture - Final 09/09/20 18:30 Blood - Blood Gram Stain - Final Assessment And Plan - Current Problems (Diagnosis) (1) Altered mental status Current Visit: Yes Status: Acute Qualifiers: Altered mental status type: delirium Qualified Code(s): R41.0 - Disorientation, unspecified (2) Acute kidney injury Current Visit: Yes Status: Acute (3) Hyperkalemia Current Visit: Yes Status: Acute (4) COPD (chronic obstructive pulmonary disease) Current Visit: No Status: Chronic Qualifiers: COPD type: emphysema Emphysema type: panlobular Qualified Code(s): J43.1 - Panlobular emphysema (5) DM2 (diabetes mellitus, type 2) Current Visit: No Status: Chronic Qualifiers: Diabetes mellitus shelter insulin use: with shelter use Diabetes mellitus complication status: without complication Qualified Code(s): E11.9 - Type 2 diabetes mellitus without complications; Z79.4 - joint terminal attack controller (current) use of insulin - Plan I suspect acute to subacute CVA. Case discussed with Dr. Gilliam. MRI reporting dilated ventricles-which could be secondary to brain atrophy or NPH. Dr. Gilliam recommends lumbar puncture for high volume CSF drain to see if patient functional status as well as memory loss will improve May need to hold aspirin for 3 days before the lumbar puncture. I suspect her hypoxia is chronic and secondary to emphysema. Home oxygen qualification on discharge. Acute renal failure resolved. Serum creatinine has improved. Monitor renal function Leukocytosis has trended down. Cause of leukocytosis is unclear. Chest x-ray reviewed and no pneumonia reported. Antibiotics discontinued. Monitor for dementia with behavioral abnormalities and sundowning. Seroquel at bedtime for owning.
--- NOTE | 2020-09-12 11:41 | PN ---
Date of Progress Note: 09/12/2020 Subjective: The patient was admitted with suspected CVA, acute kidney injury secondary to prerenal. Yesterday, we discontinued IV fluid. The patient's blood pressure still on the lower side. Physical Examination: Vital Signs: Blood pressure 99/51, pulse of 78, afebrile. The patient had urine output of 650. Chest: Clear to auscultation. Heart: S1, S2. Systolic murmur. Abdomen: Soft, nontender. Extremities: No edema. Neuro: The patient had right facial droop. Laboratory Data: WBC 13.1, H and H 9.6/29.7, platelets 297. Sodium 140, potassium 4.6, bicarb 32, BUN 31, creatinine 1.3, GFR of 52, calcium 8.7, phos of 3, albumin 2.4. Serum protein electrophoresis still pending. PTH 46. PC ratio 1.9. Ultrasound; normal size kidney, no hydronephrosis, 9/10 cm. MRI was done yesterday. Only ischemic change, no acute finding. Current Medications: The patient on include: 1. Aspirin. 2. Lovenox. 3. Quetiapine. 4. Tylenol. 5. Zofran. 6. Insulin. Assessment And Plan: 1. Acute kidney injury secondary to prerenal, start to plateau. I am going to keep holding IV fluid for the time being as the patient back to his baseline and we will monitor. 2. Hypertension, controlled optimal. The patient off blood pressure medication. Blood pressure marginally on the lower side, asymptomatic. I am going to keep holding IV fluid. Keep holding blood pressure medication. 3. Hyponatremia secondary to poor intake. I am going to start the patient on D5. 4. Hyperkalemia, resolved. 5. Suspect of pneumonia. Continue current antibiotic. Follow up with primary. The patient cleared from the renal standpoint for discharge planning. time spend exam the patient face to face , place order , discussed the case with other team foreman hospitalist and other consulatant 45 min. LATESHA Voice ID: [id number] Report ID: [id number] SADAF
[2020-09-12] MEDS ORDERED: D5W 1,000 ML IV SCH (12:00)
[2020-09-12 13:46] VITALS: BP 103/53; TEMP 97.2
--- NOTE | 2020-09-12 14:57 | P.DS ---
Admission Date: 09/09/20 Discharge Date: 09/12/20 Primary Care Provider: DAXA Disposition: DC HOME/HOME HEALTH CARE Discharge Condition: FAIR Reason for Admission: AMS, Hypoxia, CHF, CURRY, Hyperkalemia - Problems (1) Altered mental status Current Visit: Yes Status: Acute Qualifiers: Altered mental status type: delirium Qualified Code(s): R41.0 - Disorientation, unspecified (2) Acute kidney injury Current Visit: Yes Status: Acute (3) Hyperkalemia Current Visit: Yes Status: Acute (4) COPD (chronic obstructive pulmonary disease) Current Visit: No Status: Chronic Qualifiers: COPD type: emphysema Emphysema type: panlobular Qualified Code(s): J43.1 - Panlobular emphysema (5) DM2 (diabetes mellitus, type 2) Current Visit: No Status: Chronic Qualifiers: Diabetes mellitus correction insulin use: with doctor of osteopathy use Diabetes mellitus complication status: without complication Qualified Code(s): E11.9 - Type 2 diabetes mellitus without complications; Z79.4 - coil connector (current) use of insulin Brief History of Present Illness: 89-year-old gentleman with a history of diabetes mellitus, COPD, emphysema was brought to the emergency department because of progressive worsening mental status of about 5 days duration. Patient's spouse reported insomnia, decreased oral intake and hallucinations which was worse during the night. His oxygen saturation was 88% on room air when EMS found him. His white cell count was elevated in the ED. Serum creatinine slightly elevated. Chest x-ray demonstrated mild CHF. UA showed no evidence of UTI. Patient was hospitalized for further management. Hospital Course: Patient initially diagnosed with congestive heart failure and given a dose of IV Lasix. Lasix was later discontinued and patient was treated with IV fluids for acute renal failure. Urine culture yielded no growth. Blood cultures no growth. She was treated empirically with Levaquin. Leukocytosis trended down. Patient had intermittent episodes of confusion. His mild appeared deviated to the right no was a concern for acute stroke. MRI of the brain done did not show acute infarct but demonstrated dilated ventricles which could be secondary to bring atrophy or normal pressure hydrocephalus. Neurology was consulted, patient was seen by Dr. Gilliam recommended a trial of higher volume lumbar puncture as an outpatient to see if his memory loss and functional status will improve. His oxygen saturation was 95% on the day of discharge and he did not qualify for home oxygen. Patient was intermittently agitated and was put on Seroquel at bedtime. Patient desires to go home today. He will be discharged with home health for fpc and physical therapy. He would also need wound/skin care for previous fungal infection of the back. He will follow with Dr. Gilliam within 1-2 weeks for arrangement for the lumbar puncture. His aspirin is being held in anticipation for lumbar puncture next week. Vital Signs/Physical Exam: Temp Pulse Resp BP Pulse Ox 97.2 F 72 18 103/53 L 99 09/12/20 12:00 09/12/20 12:00 09/12/20 12:00 09/12/20 12:00 09/12/20 12:00 General: In no apparent distress, Oriented x2 HEENT: Mucous membr. moist/pink Neck: Supple, JVD not distended Respiratory: Clear to auscultation bilaterally, Normal air movement Cardiovascular: No edema, Regular rate/rhythm, Normal S1 S2 Gastrointestinal: Normal bowel sounds, Soft and benign, No tenderness Musculoskeletal: No erythema, Contractures (Knees) Neurological: Other (Mild left facial droop) Laboratory Data at Discharge: WBC 13.1 K/uL (4.3-10.9) H D 09/11/20 03:50 Hgb 9.6 g/dL (13.6-17.9) L 09/11/20 03:50 Hct 29.7 % (39.6-49.0) L 09/11/20 03:50 Plt Count 295 K/uL (152-406) 09/11/20 03:50 PT 13.1 SECONDS (9.5-12.5) H 09/09/20 18:16 INR 1.11 09/09/20 18:16 Sodium 140 mmol/L (136-145) 09/12/20 07:19 Potassium 4.6 mmol/L (3.5-5.1) 09/12/20 07:19 BUN 31 mg/dL (7-18) H 09/12/20 07:19 Creatinine 1.30 mg/dL (0.55-1.3) 09/12/20 07:19 Glucose 163 mg/dL (74-106) H 09/12/20 07:19 Phosphorus 3.0 mg/dL (2.5-4.9) 09/12/20 07:19 Magnesium 2.0 mg/dL (1.8-2.4) 09/09/20 19:20 Total Bilirubin 0.4 mg/dL (0.2-1.0) 09/09/20 19:20 AST 16 U/L (15-37) 09/09/20 19:20 ALT 15 U/L (12-78) 09/09/20 19:20 Alkaline Phosphatase 72 U/L (45-117) 09/09/20 19:20 Troponin I < 0.02 ng/mL (0.0-0.045) 09/10/20 08:25 Home Medications: Acetaminophen with Codeine [Tylenol with-Codeine #3 Tablet] 1 each PO BIDP PRN 09/10/20 Calcium Carb/Vitamin D3/Vit K1 [Calcium + D Soft Chewable Tab] 1 each PO DAILY 09/10/20 Metformin HCl 1,000 mg PO BID 09/10/20 Multivit-Min/FA/Lycopen/Lutein [Centrum Silver Men Tablet] 1 each PO DAILY 09/10/20 Simvastatin 40 mg PO DAILY 09/10/20 Quetiapine [Seroquel*] 25 mg PO BEDTIME tab 09/12/20 Diet: ADA Activity: Fall precautions Followup: Unknown,U [Primary Care Provider] - 1-2 Weeks Chencho Gilliam MD [ASSOCIATE-ACTIVE - CAN ADMIT] - 1-2 Weeks Time spent managing pt's care (in minutes): 45
[2020-09-12] MEDS: ENOXAPARIN 40 MG/0.4 ML SQ SCH (17:00)
[2020-09-12 18:00] VITALS: O2SAT 94
--- NOTE | 2020-09-12 20:48 | CON ---
Reason For Consultation: Consultation called by Dr. Barney because of altered mental status. History Of Present Illness: Mr. Sanchez is an 89-year-old right-handed patient with history of prostate cancer treated 8 years ago and urinary incontinence, congestive heart failure, hypoxia, hypokalemia, who comes in with worsening confusion. The patient's noted that he has been more c onfused and disoriented over the last few days. However, she believes his condition in terms of cogn itive functioning and worsening several months ago as he himself reported 1 day he tried to get out o f bed, legs would not work, and he was confused. He has not ambulated independently for the last 8 o r so months and requires a caregiver 24 hours a day for transfers from bed to chair, commode, and koby wer. As noted previously, he has been incontinent of urine for 9 years since the prostate surgery. In terms of confusion, the patient has had some difficulty keeping up with words, thoughts, days, and time of day, and that has been in parallel with his inability to ambulate. His workup at [facility] included a head CT scan which showed no acute ischemic or hemorrhagic findings. There were prominent central ventricles secondary to central cortical atrophy versus normal pressure hydrocepha lyric as reported on the CT scan. Brain MRI showed moderate dilatation of the ventricles secondary to white matter atrophy. Again noted, possible normal-pressure hydrocephalus may have the same appearan ce. His blood work revealed elevated white blood cell counts on admission from 17,000 with 78% neutr ophils now, yesterday 13,000 with 73% neutrophils, hemoglobin 9.6. INR was normal. Blood chemistrie s showed a creatinine of 1.3, glucose ranged from 137 to 218. His workup for possible sepsis was neg ative with normal lactic acid. Past Medical History: As indicated including diabetes mellitus, dyslipidemia, and severe arthritis. Past Surgical History: Prostate surgery from prostate cancer, cataract surgery, abdominal hernia rep air. Allergies: NO KNOWN DRUG ALLERGIES. Medications: At home aspirin 81 mg daily, carvedilol twice daily, Plavix 75 mg daily, Tylenol 3 sharron y, glimepiride daily, losartan daily, metformin, metoprolol, mirtazapine, simvastatin. He is on Coum susan, Cozaar, nystatin. Family History: Noncontributory. Social History: No alcohol, tobacco, or IV drug use. The patient drinks caffeinated beverages. He has a 24-hour caregiver and he is . Review of Systems: He admits to generalized weakness. Some problems with memory, inability to walk, urinary incontinenc e, and diffuse weakness. Physical Examination: Vital Signs: Blood pressure 103/53, pulse 73, respiratory rate 18, temperature 97.2, oxygen saturati on 99% on room air. Weight 191 pounds, height 6 feet 3 inches, BMI 23.9. General: Mr. Sanchez is resting in bed. He is in no significant distress. HEENT: He is normocephalic and atraumatic. Sclerae are anicteric. Oropharynx is moist and pink. Neck: Supple. Chest: Clear. Abdomen: Soft. Extremities: Show no significant clubbing, cyanosis, or edema. Neurological: He is alert and oriented to person, place, situation, did not know the exact date, but knew the year, the month, hospital, did not know the floor of the hospital, and he follows all comma nds appropriately. Cranial nerve examination: He appears to have a subtle decrease in the right lloyd olabial fold; however, he actually has excursions that are equal on smiling. Sensation intact to fac e bilaterally and tongue and palate are in the midline. Motor examination: No weakness appreciated in the upper extremities proximally and distally. Lower extremities; he has significant difficulty m oving the legs, barely able to move the right leg outward at 1 to 2, not able to move against gravity . On the left, he has moved the foot up and down at 1 to 2, proximally 0. Sensation is intact in th e legs bilaterally. Unable to assess coordination, unable to ambulate, and he has increased tone in the lower extremities compared to the upper extremities. Assessment: Mr. Sanchez is an 89-year-old patient with chronic urinary incontinence, inability to sta nd and ambulate going on for 8 months and mild cognitive impairment. MRI suggests possibility of nor mal-pressure hydrocephalus. Plan: The patient may have a high-volume lumbar puncture and assess the ability to move the legs and evaluate cognitive functioning. He will have this as an outpatient. He will have aspirin stopped a bout 5 days prior to the procedure. At this point, continue with current medical management and the patient to be discharged home with physical therapy and a 24-hour caregiver. ARACELIS Voice ID: [id number] Report ID: [id number]
[2020-09-14 13:28] LABS: Vitamin D 1,25-Dihydroxy Total <8 pg/mL (18-72); Vitamin D,1,25-OH2, D2 <8 pg/mL
[2020-09-15 23:59] LABS: Albumin, (SPE) 2.7 g/dL (3.8-4.8); Alpha-1-Globulins 0.4 g/dL (0.2-0.3); Gamma Globulins 0.8 g/dL (0.8-1.7); INTERPRETATION REPORT
== END 2020-09-12 17:49 | disposition home health service (06) | DRG 56 ==
LOC: ER 17:32 → ERHOLD 22:04 → 2ND 23:29
PROVIDERS: ADMIT Internal Medicine; ATTEND Internal Medicine
DX: G91.2 (Idiopathic) normal pressure hydrocephalus (principal); J96.01 Acute respiratory failure with hypoxia; G93.41 Metabolic encephalopathy; N17.9 Acute kidney failure, unspecified; J44.1 Chronic obstructive pulmonary disease with (acute) exacerbation; F05 Delirium due to known physiological condition; F03.91 Unspecified dementia, unspecified severity, with behavioral disturbance; E87.1 Hypo-osmolality and hyponatremia; I11.0 Hypertensive heart disease with heart failure; I50.9 Heart failure, unspecified; E87.5 Hyperkalemia; E11.40 Type 2 diabetes mellitus with diabetic neuropathy, unspecified; N28.9 Disorder of kidney and ureter, unspecified; G47.00 Insomnia, unspecified; D64.9 Anemia, unspecified; I51.7 Cardiomegaly; M19.90 Unspecified osteoarthritis, unspecified site; I25.10 Atherosclerotic heart disease of native coronary artery without angina pectoris; E78.5 Hyperlipidemia, unspecified; Z79.84 Long term (current) use of oral hypoglycemic drugs; Z79.82 Long term (current) use of aspirin; Z79.899 Other long term (current) drug therapy; Z79.02 Long term (current) use of antithrombotics/antiplatelets; Z79.01 Long term (current) use of anticoagulants; Z85.46 Personal history of malignant neoplasm of prostate; Z20.828 Contact with and (suspected) exposure to other viral communicable diseases
CPT/HCPCS: 36415; 51702; 70450; 70551; 71045; 76770; 80048; 80069; 80076; 81003; 81015; 82570; 82652; 82947; 83036; 83605; 83735; 83880; 83970; 84156; 84165; 84439; 84443; 84484; 85025; 85610; 86592; 87040; 87086; 87088; 87205; 93005; 96365; 96375; 97162; 99285; J0610; J1650; J1940; J2270; J7030; U0003

== ENCOUNTER 2020-09-22 11:13 | Emergency (ER) | payer OTHER ==
[2020-09-22] MEDS ORDERED: METHYLPREDNISOLONE 125 MG INJ ONE (11:42)
[2020-09-22 11:47] LABS: Absolute Lymphocytes (CBC) 0.9 K/uL (0.7-4.9); Basophils % 0.9 % (0-1.3); Hematocrit 30.2 % (39.6-49.0); Lymphocytes % 7.1 % (15.3-44.8); MPV 8.5 fL (7.6-11.3)
[2020-09-22] MEDS ORDERED: LEVALBUTEROL 1.25 MG/3 ML NEB ONE (12:01)
--- NOTE | 2020-09-22 12:09 | RAD REPORT ---
EXAM DESCRIPTION: RAD - Chest Single View - 09/22/2020 11:35 am CLINICAL HISTORY: COPD COMPARISON: September 09 TECHNIQUE: AP portable chest image was obtained 09/22/2020 11:35 am . FINDINGS: Exam is degraded by motion and rotation. No focal consolidations seen. Cardiac silhouette is upper normal to slightly enlarged. Pulmonary vasculature is increased slightly from comparison. No tracheal shift identified. Mediastinum is distorted by the extent of rotation. No pneumothorax or la rge pleural effusion. Bilateral costophrenic angle blunting could indicate pleural scarring or small pleural effusions. No acute bony abnormality seen. No acute aortic findings suspected. IMPRESSION: Mild CHF/volume overload similar or slightly worse than September 09 imaging.
[2020-09-22 12:24] LABS: Potassium 5.6 mmol/L (3.5-5.1)
[2020-09-22] MEDS ORDERED: FUROSEMIDE 20 MG/ 2ML VIAL ONE (12:58)
--- NOTE | 2020-09-22 13:04 | EDPHYS ---
Physician Documentation [facility] Name: Andrew Sanchez Age: 89 yrs Sex: Male : 1930 Arrival Date: 09/22/2020 Time: 11:13 Bed 19 Private MD: ED Physician Kofi Cameron HPI: 09/22 11:34 This 89 yrs old Male presents to ER via EMS with complaints of low oxygen. rn 11:34 Onset: The symptoms/episode began/occurred at an unknown time. Duration: The symptoms rn are continuous, but are steadily getting better. The patient's shortness of breath is aggravated by nothing, is alleviated by application of supplemental oxygen. Severity of symptoms: At their worst the symptoms were mild in the emergency department the symptoms have improved. The patient has experienced similar episodes in the past. Pt on hospice, called 911 because oxygen was low, EMS noticed length of tubing approx 100ft or so, improved with oxygen from EMS. Pt denies sob. Has COPD and CHF. Denies pain. Denies chest or abd pain. . Historical: - Allergies: 11:16 Morphine; bp - PMHx: 11:16 Hypertension; Emphysema; Diabetes - IDDM; Arthritis; CHF; COPD; bp - Immunization history:: Adult Immunizations up to date. - Social history:: Smoking status: unknown. - Family history:: not pertinent. - Hospitalizations: : No recent hospitalization is reported. ROS: 11:37 Constitutional: Negative for fever, chills, and weight loss, Eyes: Negative for injury, rn pain, redness, and discharge, Neck: Negative for injury, pain, and swelling, Cardiovascular: Negative for chest pain, palpitations, and edema, Respiratory: Negative for pleuritic chest pain Abdomen/GI: Negative for abdominal pain, nausea, vomiting, diarrhea, and constipation, Back: Negative for injury and pain, MS/Extremity: Negative for injury and deformity, Skin: Negative for injury, rash, and discoloration, Neuro: Negative for headache, weakness, numbness, tingling, and seizure. Exam: 11:37 Constitutional: Elderly male, with tachypnea Head/Face: Normocephalic, atraumatic. 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 No pulse deficits. Respiratory: + mild tachypnea with diminished sounds at bases, + wheezing Abdomen/GI: Soft, non-tender Skin: Warm, dry MS/ Extremity: Pulses equal, no cyanosis. Neuro: Awake and alert, GCS 15 Vital Signs: 11:14 BP 121 / 66; Pulse 102; Resp 32; Temp 97.1; Pulse Ox 86% on R/A; bp 12:00 BP 129 / 67; Pulse 102; Resp 17; Pulse Ox 98% on 15% Nebulizer Mask; zb 13:00 BP 125 / 64; Pulse 109; Resp 35; Pulse Ox 95% ; bp 14:00 BP 112 / 60; Pulse 110; Resp 35; Pulse Ox 96% ; bp 15:00 BP 95 / 56; Pulse 98; Resp 34; Temp 97.5; Pulse Ox 95% ; bp MDM: 11:14 Patient medically screened. rn 12:58 Differential diagnosis: Bronchitis CHF exacerbation, Chronic Obstructive Pulmonary rn Disease Myocardial Infarction pneumonia, pulmonary edema, Sepsis COVID-19. Data reviewed: vital signs, nurses notes, lab test result(s), EKG, radiologic studies, plain films, and as a result, I will discharge patient. Counseling: I had a detailed discussion with the patient and/or guardian regarding: the historical points, exam findings, and any diagnostic results supporting the discharge/admit diagnosis, lab results, radiology results. Response to treatment: the patient's symptoms have mildly improved after treatment, and as a result, I will discharge patient. ED course: Had long conversation with family member, told her that this is combination of things, namely COPD, CHF with pulmonary edema, and possible superimposed infection. Offered admission to hospital for diuresis/steroids/abx, family members states absolutely does not want admission, does not want him to in hospital, is going to take him home. Explained that given multiple active problems, is possible if take leonel home, but reassured her that is one of the reasons she elected to place him in hospice. She understands this and wants to take him home. Will dc home with steroids and abx, recommend regular lasix treatment. She states has home health nurses come with around the clock coverage in 2 shifts. . 09/22 11:15 Order name: BNP; Complete Time: 12:29 rn 09/22 11:15 Order name: CBC with Diff; Complete Time: 12:14 rn 09/22 11:15 Order name: XRAY Chest (1 view); Complete Time: 12:14 rn 09/22 11:15 Order name: Basic Metabolic Panel; Complete Time: 12:29 rn 09/22 11:15 Order name: Procalcitonin; Complete Time: 12:29 rn 09/22 12:29 Order name: COVID-19 rn 09/22 11:15 Order name: IV Start; Complete Time: 11:22 rn 09/22 11:15 Order name: EKG; Complete Time: 11:16 rn 09/22 11:15 Order name: EKG - Nurse/Tech; Complete Time: 12:00 rn Administered Medications: 11:30 Drug: SOLU-Medrol 125 mg Route: IVP; Site: right forearm; bp 12:00 Follow up: Response: No adverse reaction zb 11:50 Drug: Xopenex (3) 1.25 mg Route: Inhalation; zb 12:45 Drug: Lasix 20 mg Route: IVP; Site: right forearm; bp 15:22 Follow up: Response: No adverse reaction bp 13:20 Drug: Demerol 25 mg Route: IVP; Site: right forearm; bp 15:23 Follow up: Response: No adverse reaction bp 14:00 Drug: Zithromax 500 mg Route: IVPB; Infused Over: 1 hrs; Site: right antecubital; iw 15:22 Follow up: IV Status: Completed infusion; IV Intake: 250ml bp Disposition: 09/22/20 13:04 Discharged to Home. Impression: Dyspnea, unspecified, Unspecified combined systolic (congestive) and diastolic (congestive) heart failure, Chronic obstructive pulmonary disease, unspecified. - Condition is Stable. - Discharge Instructions: Chronic Obstructive Pulmonary Disease, Heart Failure, Shortness of Breath, Hospice. - Prescriptions for Prednisone 20 mg Oral Tablet - take 3 tablet by ORAL route once daily for 5 days; 15 tablet. Zithromax Z- Bakari 250 mg Oral Tablet - take 1 tablet by ORAL route as directed for 5 days Day 1 - take two (2) tablets one time. Day 2, 3, 4 , 5 take one (1) tablet once daily.; 6 tablet. - Medication Reconciliation Form, Thank You Letter, Antibiotic Education, Prescription Opioid Use form. - Follow up: Private Physician; When: As needed; Reason: Recheck today's complaints, Re-evaluation by your physician. - Problem is new. - Symptoms have improved. Signatures: Dispatcher [employer] EDBonnie Avelar RN Kofi Gaitan MD MD rn Peltier, Brian, RN RN bp Brown, Zipporah, RN RN zb Corrections: (The following items were deleted from the chart) 15:48 13:04 09/22/2020 13:04 Discharged to Home. Impression: Dyspnea, unspecified; bp Unspecified combined systolic (congestive) and diastolic (congestive) heart failure; Chronic obstructive pulmonary disease, unspecified. Condition is Stable. Forms are Medication Reconciliation Form, Thank You Letter, Antibiotic Education, Prescription Opioid Use. Follow up: Private Physician; When: As needed; Reason: Recheck today's complaints, Re-evaluation by your physician. Problem is new. Symptoms have improved. rn
--- NOTE | 2020-09-22 13:04 | ER ---
Nurse's Notes [facility] Name: Andrew Sanchez Age: 89 yrs Sex: Male : 1930 Arrival Date: 09/22/2020 Time: 11:13 Bed 19 Private MD: Diagnosis: Dyspnea, unspecified;Unspecified combined systolic (congestive) and diastolic (congestive) heart failure;Chronic obstructive pulmonary disease, unspecified Presentation: 09/22 11:14 Chief complaint: EMS states: LOW O2 SAT AT HOME. Coronavirus screen: At this time, the bp client does not indicate any symptoms associated with coronavirus-19. The client reports previous COVID testing was negative. Date of collection: September 08, 2020. Ebola Screen: No symptoms or risks identified at this time. Initial Sepsis Screen: Does the patient meet any 2 criteria? No. Patient's initial sepsis screen is negative. Does the patient have a suspected source of infection? No. Patient's initial sepsis screen is negative. Risk Assessment: Do you want to hurt yourself or someone else? Patient reports no desire to harm self or others. Note HOSPICE PT. Onset of symptoms is unknown. Care prior to arrival: IV initiated. 20 GA, in the right forearm. 11:14 Method Of Arrival: EMS: [facility] bp 11:14 Acuity: JAMIE 3 bp Triage Assessment: 11:16 General: Appears in no apparent distress. comfortable, Behavior is cooperative, bp anxious. Pain: Denies pain. EENT: No deficits noted. Neuro: No deficits noted. Cardiovascular: Rhythm is sinus tachycardia. Respiratory: Reports shortness of breath Onset: The symptoms/episode began/occurred this morning, the patient has mild shortness of breath. GI: No signs and/or symptoms were reported involving the gastrointestinal system. : to gravity drainage. Derm: No deficits noted. Musculoskeletal: No deficits noted. Historical: - Allergies: 11:16 Morphine; bp - PMHx: 11:16 Hypertension; Emphysema; Diabetes - IDDM; Arthritis; CHF; COPD; bp - Immunization history:: Adult Immunizations up to date. - Social history:: Smoking status: unknown. - Family history:: not pertinent. - Hospitalizations: : No recent hospitalization is reported. Screenin:15 Abuse screen: Denies threats or abuse. Denies injuries from another. Nutritional bp screening: No deficits noted. Tuberculosis screening: No symptoms or risk factors identified. Fall Risk None identified. Assessment: 11:15 General: SEE TRIAGE NOTE. Cardiovascular: Rhythm is sinus tachycardia. Respiratory: bp Airway is patent Respiratory effort is even, labored, shallow, Breath sounds are clear bilaterally. 12:00 Reassessment: No changes from previously documented assessment. Patient and/or family zb updated on plan of care and expected duration. Pain level reassessed. ALL CURRENT ORDERS COMPLETED, NEB INFUSING. 13:23 Reassessment: D/C ON HOLD FOR ABX IV. FAMILY INFORMED OF RISK OF D/C HOME VS ADMIT BUT bp DECLINED ADMIT. 14:00 Reassessment: ABX RECD AND INFUSING. bp 15:00 Reassessment: [facility] CONTACTED FOR TRANSPORT HOME PT IS BED BOUND. bp 15:45 Reassessment: [facility] AT B/S FOR TRANSPORT. bp Vital Signs: 11:14 BP 121 / 66; Pulse 102; Resp 32; Temp 97.1; Pulse Ox 86% on R/A; bp 12:00 BP 129 / 67; Pulse 102; Resp 17; Pulse Ox 98% on 15% Nebulizer Mask; zb 13:00 BP 125 / 64; Pulse 109; Resp 35; Pulse Ox 95% ; bp 14:00 BP 112 / 60; Pulse 110; Resp 35; Pulse Ox 96% ; bp 15:00 BP 95 / 56; Pulse 98; Resp 34; Temp 97.5; Pulse Ox 95% ; bp ED Course: 11:13 Patient arrived in ED. bp 11:14 Kofi Cameron MD is Attending Physician. rn 11:15 Patient has correct armband on for positive identification. Bed in low position. Call bp light in reach. Side rails up X2. Adult w/ patient. 11:15 Maintain EMS IV. Dressing intact. Good blood return noted. Site clean \T\ dry. Gauge \T\ bp site: 20 G R FA. 11:16 Triage completed. bp 11:19 Arm band placed on. bp 11:36 XRAY Chest (1 view) In Process Unspecified. EDMS 11:38 Te Sanchez, STEPHY is Primary Nurse. bp 15:16 No provider procedures requiring assistance completed. IV discontinued, intact, bp bleeding controlled, No redness/swelling at site. Pressure dressing applied. Administered Medications: 11:30 Drug: SOLU-Medrol 125 mg Route: IVP; Site: right forearm; bp 12:00 Follow up: Response: No adverse reaction zb 11:50 Drug: Xopenex (3) 1.25 mg Route: Inhalation; zb 12:45 Drug: Lasix 20 mg Route: IVP; Site: right forearm; bp 15:22 Follow up: Response: No adverse reaction bp 13:20 Drug: Demerol 25 mg Route: IVP; Site: right forearm; bp 15:23 Follow up: Response: No adverse reaction bp 14:00 Drug: Zithromax 500 mg Route: IVPB; Infused Over: 1 hrs; Site: right antecubital; iw 15:22 Follow up: IV Status: Completed infusion; IV Intake: 250ml bp Intake: 15:22 IV: 250ml; Total: 250ml. bp Outcome: 13:04 Discharge ordered by . rn 15:21 Discharged to home via ambulance. bp 15:21 Condition: stable 15:21 Discharge instructions given to family, Instructed on discharge instructions, follow up and referral plans. medication usage, Demonstrated understanding of instructions, follow-up care, medications, Prescriptions given X 2. 15:48 Patient left the ED. bp Addendum: 09/25/2020 07:45 Addendum: COVID-19 Result: Negative result given to RN to notify pt. Notified pt of d m5 negative COVID 19 swab results. Pt advised that even with a negative test result they should remain in isolation until symptom free for 3 days without medication. Pt also advised to return to the ED for worsening symptoms. Signatures: Dispatcher [employer] EDClaudia Tamez RN RN dm5 Bonnie Beltran RN RN iw Nieto, Roman, MD MD rn Peltier, Brian, RN RN bp Brown, Zipporah, RN RN zb Corrections: (The following items were deleted from the chart) 09/22 11:19 11:14 Temp 97.1F; bp bp 15:24 13:23 Reassessment: D/C ON HOLD FOR ABX IV bp bp
[2020-09-22] MEDS ORDERED: MEPERIDINE HCL 25 MG/ML SYR ONE (13:36)
[2020-09-22] MEDS ORDERED: AZITHROMYCIN IV 500 MG in NA CHLORIDE 0.9% 250 ML IVPB ONE (14:00)
[2020-09-22 16:08] VITALS: BP 95/56; TEMP 97.5; O2SAT 95
== END 2020-09-22 15:48 | disposition home or self-care (01) ==
LOC: ER 11:13
DX: I50.40 Unspecified combined systolic (congestive) and diastolic (congestive) heart failure (principal); J44.9 Chronic obstructive pulmonary disease, unspecified; I10 Essential (primary) hypertension; Z20.828 Contact with and (suspected) exposure to other viral communicable diseases; Z88.5 Allergy status to narcotic agent
CPT/HCPCS: 96365; 93005; 85025; 80048; 36415; 84145; 83880; 71045; 96375; 99285; U0002; J1940; J0456; J2175; J7050; J2930